=== PATIENT | female | born 1945 | race Caucasian/White ===

== ENCOUNTER → 2017-09-05 09:25 | Outpatient (CLI) | payer MEDICARE, OTHER, SELFPAY ==
[2017-09-05 12:34] LABS: Cholesterol 116 mg/dL (200); High Density Lipoprotein 41 mg/dL; Triglycerides 226 mg/dL; Very Low Density Lipoprotein 45 mg/dL (5-40)
[2017-09-05 12:36] LABS: Hemoglobin A1c 9.8 % (4.2-6.3)
== END ==
PROVIDERS: Family Provider Family Medicine; PCP Family Medicine; Visit Provider Family Medicine
DX: E78.5 Hyperlipidemia, unspecified (principal); E11.9 Type 2 diabetes mellitus without complications
CPT/HCPCS: 36415; 80061; 83036

== ENCOUNTER → 2017-12-03 09:07 | Outpatient (CLI) | payer MEDICARE, OTHER, SELFPAY ==
[2017-12-03 10:45] LABS: Hemoglobin A1c 9.9 % (4.2-6.3)
== END ==
PROVIDERS: Family Provider Family Medicine; PCP Family Medicine; Visit Provider Family Medicine
DX: E11.9 Type 2 diabetes mellitus without complications (principal)
CPT/HCPCS: 36415; 83036

== ENCOUNTER → 2018-03-09 08:37 | Outpatient (CLI) | payer MEDICARE, OTHER, SELFPAY ==
[2018-03-09 11:04] LABS: Cholesterol 132 mg/dL (200); High Density Lipoprotein 49 mg/dL; Triglycerides 180 mg/dL; Very Low Density Lipoprotein 36 mg/dL (5-40)
[2018-03-09 11:09] LABS: Hemoglobin A1c 7.8 % (4.2-6.3)
== END ==
PROVIDERS: Family Provider Family Medicine; PCP Family Medicine; Referring Provider Family Medicine; Visit Provider Family Medicine
DX: E11.9 Type 2 diabetes mellitus without complications (principal); E78.2 Mixed hyperlipidemia
CPT/HCPCS: 36415; 80061; 83036

== ENCOUNTER → 2018-05-04 09:25 | Outpatient (CLI) | payer MEDICARE, OTHER, SELFPAY ==
[2018-05-04 08:33] VITALS: BMI 31.9
[2018-05-04 10:55] LABS: Microalbumin,Random Urine 74.9 mg/L (NO RANGE EST.); Microalbumin:Creatinine Ratio 113.7 mg/g CRE (<30 mg/g CRE)
--- OUTSIDE RECORDS SUMMARY | 2018-08-05 21:46 | XMS RPT_ITS ---
:1945 Author Organization OHIP Care Team Providers Name Role Phone RASHAUN BLAKE Attending Unavailable BROWN, RASHAUN Primary Care Unavailable JENNIFER VALENCIA CNP Attending Unavailable BROWN, RASHAUN Primary Care Unavailable HANY CRAWFORD CNP Attending Unavailable BROWN, RASHAUN Primary Care Unavailable Jennifer Valencia CABLE ARMORER-C Attending Unavailable Brown, Rashaun Referring Unavailable Jennifer Valencia CABLE ARMORER-C Attending Unavailable Jennifer Valencia CABLE ARMORER-C Referring Unavailable Brown, Rashaun Primary Care Unavailable Brown, Rashaun Attending Unavailable Brown, Rashaun Referring Unavailable Brown, Rashaun Primary Care Unavailable Brown, Rashaun Attending Unavailable Brown, Rashaun Referring Unavailable Brown, Rashaun Attending Unavailable Brown, Rashaun Primary Care Unavailable Brown, Rashaun Attending Unavailable Brown, Rashaun Referring Unavailable Jennifer Valencia CABLE ARMORER-C Attending Unavailable Brown, Rashaun Referring Unavailable Jennifer Valencia CABLE ARMORER-C Attending Unavailable Brown, Rashaun Referring Unavailable Brown, Rashaun Primary Care Unavailable Brown, Rashaun Attending Unavailable Brown, Rashaun Referring Unavailable Brown, Rashaun Primary Care Unavailable Brown, Rashaun Attending Unavailable Rashaun Blake Primary Care Unavailable PROBLEMS PROBLEMS DATE TYPE CONDITION / CODE ATTENDING STATUS SOURCE 05/04/2018 Unknown E11.9 - Type 2 Jennifer Valencia Active [facility] diabetes mellitus CABLE ARMORER-C Community without Hospital complications / Repository E11.9(ICD-10) 03/04/2018 Unknown E78.2 - Mixed Rashaun Blake Active [facility] hyperlipidemia / Community E78.2(ICD-10) Hospital Repository 09/09/2017 Unknown E78.5 - Hayden, Rashaun Active [facility] Hyperlipidemia, Community unspecified / Hospital E78.5(ICD-10) Repository 09/09/2017 Unknown I10 - Essential Brown, Rashaun Active [place] (primary) Community hypertension / Hospital I10(ICD-10) Repository PROCEDURES PROCEDURES No Procedure Records FoundRESULTS RESULTS ENDOCRINOLOGY VISIT Observed: 05/04/2018 Status: F Source: [place] REPORT 12:35 PM [facility] REPOSITORY [facility]. [address] [place] [address] OFFICE VISIT Date of Service: 05/04/18 MR#: [id number] Acct: [id number] Name: MARIAELENA BERMAN Rep #: [id number] : 1945 Provider: Jennifer Valencia NP Age/Sex: 73/F [place] [facility] [place]: Signed HPI History of present illness Kyrie Berman is a 73 year old female who presents for follow up of diabetes type 2. Diagnosed in 1987. Currently on januvia, glipizide 2.5mg and metformin. States she was also on invokana but she actually had swelling in her lower extremities while on the medication so it was stopped. 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 RECENT a1C DOWN TO 7.8; THIS IS DOWN FROM 9.9 At time of visit: -Pt denies symptoms of hypertensive emergency (CP,SOB,PAEZ, or blurred vision) and hypotension(dizziness or lightheadedness) -Pt denies symptoms of hypoglycemia ( sweaty, confusion, anxiety, tremor, hunger, palpitations) and hyperglycemia ( polydipsia, polyuria) -Pt denies potential medication adverse effect. Hypoglycemia Aware of hypoglycemia: When awake Able to self treat low BG: Yes Frequent low Bloo sugar: No Has supply of glucagon: no Diet 3 meals Breakfast light Total of 0599-1945 latia diet Exercise Daily walks [place] daily SMBG 1 time daily BG 140 -216 checked in am or after evening meal. Exam Const General: cooperative Nutritional Appearance: overweight Orientation: oriented x3 Resp Effort AND Inspection: normal respiratory effort Auscultation: Bilateral: Clear to Auscultation Cardio Palpation: normal PMI Rate: regular rate Rhythm: regular rhythm Heart Sounds: S1 normal, S2 normal Skin General: no rashes or lesions noted Neuro General: normal sensation to monofilament Extrem General: normal to inspection, no pedal edema Feet: Pulses intact and monofilament test normal. Type: type 2 Glucose control symptoms: Reports high post-meal glucose Weight and fatigue symptoms: Denies snoring Cardiopulmonary symptoms: Reports chest pain at rest; denies dyspnea on exertion, lightheadedness or myalgias GI symptoms: Denies constipation, diarrhea, nausea/dyspepsia or vomiting Skin and extremity symptoms: Denies tingling/numbness/burning Other symptoms: Denies blurry vision or change in vision Pertinent visit history: Denies recent visit to ER, recent hospital admission or recent 911 calls Self monitoring: Yes Glucometer type: one touch ultra one time daily Percentage of fasting blood glucose within goal: 25%-50% of the time Dietary compliance: Diabetes: good Diabetes education in past year: Yes Glucose testing: demonstrates correct use of meter, understands testing schedule Sick day education - understands ketone testing: Yes Physical activity: regular Intake Vital Signs05/04/18 Height 5 ft 1 in 05/04/18 Weight: 169 lb 2 oz 05/04/18 Body Mass Index (BMI) 31.9 05/04/18 Blood Pressure 120/80 05/04/18 Blood Pressure Location Lt popliteal Intake Visit Reasons: 3 M FU Dice Manager Required: No Accompanied by: Self Allergies canagliflozin [From Invokana] Allergy (Severe, Verified 05/04/18 08:29) Itching venom-honey bee Allergy (Unknown, Verified 05/04/18 08:29) Unknown oranade Allergy (Severe, Uncoded 05/04/18 08:29) Other Medications acetaminophen 325 mg capsule 325 mg PO Q6H PRN 09/03/17 [History Confirmed 05/04/18] amitriptyline 25 mg tablet 25 mg PO QHS #90 tab 09/03/17 [Rx Confirmed 05/04/18] ascorbate calcium 500 mg tablet 500 mg PO QDAY 09/03/17 [History Confirmed 05/04/18] ascorbic acid (vitamin C) 500 mg capsule mg PO 09/03/17 [History Confirmed 05/04/18] aspirin 81 mg tablet,delayed release 81 mg PO QDAY 09/03/17 [History Confirmed 05/04/18] esomeprazole magnesium 20 mg capsule,delayed release 20 mg PO QDAY 09/03/17 [History Confirmed 05/04/18] flaxseed oil 1,000 mg capsule 1,000 mg PO QDAY 09/03/17 [History Confirmed 05/04/18] metoprolol succinate ER 50 mg tablet,extended release 24 hr 50 mg PO QDAY #90 tab 09/03/17 [Rx Confirmed 05/04/18] multivitamin tablet 1 tab PO QAM 09/03/17 [History Confirmed 05/04/18] nutra calm PO 09/03/17 [History Confirmed 05/04/18] pravastatin 10 mg tablet 10 mg PO QHS #90 tab 09/03/17 [Rx Confirmed 05/04/18] valsartan 320 mg-hydrochlorothiazide 25 mg tablet 0.5 tab PO QDAY tab 12/03/17 [History Confirmed 05/04/18] losartan 100 mg-hydrochlorothiazide 25 mg tablet 1 tab PO QDAY #90 tab 12/16/17 [Rx Confirmed 05/04/18] metformin ER 500 mg 24 hr tablet,extended release 500 mg PO QPM #60 tab 02/02/18 [Rx Confirmed 05/04/18] metformin ER 1,000 mg tablet,extended release 24hr 1,000 mg PO QDAY #90 tab 03/04/18 [Rx Confirmed 05/04/18] sitagliptin 100 mg tablet 100 mg PO QDAY #90 tab 03/04/18 [Rx Confirmed 05/04/18] blood sugar diagnostic strips See Dose Instructions .ROUTE .MEDSUPPLY #50 ea 05/04/18 [Rx Confirmed 05/04/18] glipizide ER 5 mg tablet, extended release 24 hr 5 mg PO DAILY #30 tab 05/04/18 [Rx Confirmed 05/04/18] Nurse's Note: blood sugars : low : 151 high : 241 [facility] Medical History Mitral valve prolapse (Chronic) Seasonal allergic rhinitis (Chronic) Cataracts, bilateral (Chronic) Chronic back pain (Chronic) GERD (gastroesophageal reflux disease) (Chronic) Hyperlipemia (Chronic) Hypertension (Chronic) Type 2 diabetes mellitus (Chronic) Arthritis (Acute) Bone fracture (Acute) COPD (chronic obstructive pulmonary disease) (Acute) Chronic headaches (Acute) Gout (Acute) Hearing problem (Acute) Heart murmur (Acute) History of hysterectomy (Acute) Recurrent UTI (Acute) Vision problem (Acute) Surgical History History of cholecystectomy (Acute) History of foot surgery (Acute) History of tonsillectomy (Acute) Family History Mother Cancer ovarian Arthritis Diabetes Depression Father Respiratory disease Arthritis Heart disease Grandfather Heart disease Myocardial infarction Brother Parkinsons Sister Diabetes Aunt Thyroid disorder Arthritis Diabetes Social History Smoking Status: Never smoker alcohol intake: never substance use type: does not use what type of physical activity do you participate in: walking frequency: daily ROS Const Constitutional: No anorexia, body ache, chills, fatigue, fever(s), frequent falls, decreased energy, malaise, night sweats, weakness, weight change, sleep problems, abnormal sleep pattern, change in appetite, other, headache(s), snoring or excessive sweating Eyes Eyes: No blurry vision, change in vision, double vision, discharge, dry eyes, bulging eyes, floaters, visual disturbances, eye pain, light sensitivity, spots in vision, tunnel vision or other ENT ENT: Positive for nasal discharge and post nasal drip; no abnormal hearing, ear pain, ear discharge, ear pressure, hearing loss, tinnitus, dizziness/vertigo, balance problems, nosebleed/epistaxis, nasal congestion, nasal obstruction, nose pain, sinus pressure, sinus pain, headache(s), facial pain, dental pain, dry mouth, bad breath, hoarseness, lip swelling, mouth lesions, mouth pain, sore throat, tongue swelling, throat swelling, other, difficulty swallowing or neck pain Resp Respiratory: No cough, change in phlegm color, chest congestion, excessive phlegm production, hemoptysis, pain on inspiration, shortness of breath, pain with cough, snoring, stridor, wheezing or other Cardio Cardiology: Positive for chest pain at rest; no chest pain with exertion, leg pain with exertion, excessive sweating, shortness of breath, dyspnea on exertion, generalized swelling, irregular heart rhythm, lightheadedness, orthopnea, radiating jaw, neck or arm pain, fast heart rate, slow heart rate, palpitations or other Gastro GI: No abdominal pain, belching, bloating, change in bowel habits, change in stool character, coffee ground emesis, constipation, cramping, diarrhea, heartburn, difficulty swallowing, feeling full early, excessive flatus, incontinent of stools, Vomiting blood/hematemesis, blood in stool, loose stools, Black,tarry stools, nausea/dyspepsia, pain with swallowing, vomiting or other Genitourinary-Female: No difficulty urinating, burning urination, painful urination, urinary incontinence, urinary frequency, urinary urgency, urinary hesitancy, urinary retention, blood in urine, Frequent nighttime urination/ nocturia, post void dribbling, suprapubic fullness, side pain, sexual problems, genital lesions, genital itching, hot flashes, abnormal periods, abnormal vaginal bleeding, absent period, painful periods, light periods, heavy periods, difficulty getting , painful intercourse, pelvic pain, vaginal dryness, vaginal odor, Vaginal Itching or other Musc Musculoskeletal: No abnormal walking, joint pain, back pain, deformity, joint swelling, limited range of motion, loss of height, muscle cramps, muscle weakness, decreased muscle mass, body aches, neck pain, numbness, radiating pain into limb, stiffness, tingling or other Skin Skin: No acne, hair loss, change in hair, nail changes, boil, change in skin color, dry skin, redness, excessive hair growth, yellowing of the skin, lesions, itching, rash, skin pain, skin ulcer, sores, skin swelling, wounds or other Breast Breast: No other Neuro Neurology: No frequent falls, weakness, visual disturbances, abnormal hearing, headache(s), abnormal walking, numbness or tingling Psych Psychiatric: No abnormal sleep pattern, No change in appetite Endo Endocrine: No fatigue, other or excessive sweating Aller/Imm Allergy/Immunologic: No lip swelling, tongue swelling, throat swelling, wheezing or itchy eyes Assessment AND Plan Problems 1. Type 2 diabetes mellitus without complication, without long-term current use of insulin E11.9 2. Essential hypertension I10 3. Mixed hyperlipidemia E78.2 Plan Diabetes: Has been monitoring her BG and her diet. Feels she is doing the best she can with her diet. Not as active in the winter as she was in the summer. Feels good. Offers no complaints. Tolerating glipizide, will increase to 5mg daily Labs reviewed with patient. HTN: Controlled. On ARB without side effects Hyperlipidemia: On statin without side effect. Lipids in range. Orders Orders: Medications New: blood sugar diagnostic strips (Pongo ResumeTouch UlAs directed. Check BG one to two times daiE11.9 tra Blue Test Strip) ly 50 ea 11RF Discontinued: Plan Detail Additional Comments 1. Please schedule follow up in 3 months. 2. Lab work one week before appointment. 3. Discussed importance of regular exercise and recommend starting or continuing a regular exercise program for good health. 4. The patient was encouraged to lose weight for good health 5. The importance of monitoring blood sugar regularly was reviewed. 6. The importance of monitoring the HBA1c level regularly was reviewed. 7. The importance of prper foot care and regularly checking feet to prevent sores and loss of limbs was reviewed. 8. The importance of keeping BP at or below 130/80 to prevent stroke, heart attacks, kidney failure, blindness was reviewed. Spent approximately 30 minutes with patient with over 50% of time spent in discussion and counseling regarding medication adjustment, symptoms and treatment of hypoglycemia, diet adherence, and checking BG before driving. Coding Level of Care Code Off vis,est,level 4 Diagnoses Type 2 diabetes mellitus without complication, without long- term current use of insulin E11.9 Diabetes mellitus complication status: without complication Diabetes mellitus computer terminal operator insulin use: without computer terminal operator use Essential hypertension I10 Hypertension type: essential hypertension Mixed hyperlipidemia E78.2 Hyperlipidemia type: mixed hyperlipidemia 05/04/18 1235 <Electronically signed by Jennifer JOAQUIN> Date Jennifer JOAQUIN Cosigner Signature: Date (if applicable) CC: MICROALB:CREAT Collected: 05/04/2018 Status: F Source: [facility] RATIO,RANDOM UR 9:36 AM [facility] REPOSITORY TYPE CODE TESTS RESULT OUT OF RANGE REFERENCE UNITS LAB L501.1200 NO RANGE EST. mg/dL Normal UR CREAT 65.90 LAB L502.0500 NO RANGE EST. mg/L Normal 74.9 MICROALBUMIN ,UR LAB L502.0600 <30 mg/g CRE mg/g CRE High 113.7 MALB:CREAT Performed By: #### L502.0250 #### [facility] [address] [facility] [facility] [id number] LIPID PROFILE Collected: 03/09/2018 Status: F Source: [facility] 8:42 AM [facility] REPOSITORY TYPE CODE TESTS RESULT OUT OF RANGE REFERENCE UNITS LAB L501.4900 200 mg/dL Normal CHOL 132 Result Comment: <200 mg/dL Desirable 200-240 mg/dL Borderline >240 mg/dL High Risk LAB L501.5000 mg/dL Normal TRIG 180 Result Comment: The drugs N-Acetylcysteine and Metamizole may falsely depress this assay. Serum Triglycerides Reference Interval Normal <150 mg/dL Borderline high 150 - 199 mg/dL High 200 - 499 mg/dL Very High > or = 500 mg/dL LAB L501.6400 mg/dL Normal HDL 49 Result Comment: The drugs N-Acetylcysteine and Metamizole may falsely depress this assay. Reference Range HDL <40 mg/dL Low HDL Cholesterol HDL >or= 60 mg/dL High HDL Cholesterol LAB L501.6500 0-130 mg/dL Normal LDL 47 LAB L501.6600 5-40 mg/dL Normal VLDL 36 Performed By: #### L500.4100, L501.9985 #### [facility] [address] [facility]. [facility] [id number] HEMOGLOBIN A1C Collected: 03/09/2018 Status: F Source: [place] 8:42 AM [facility] REPOSITORY TYPE CODE TESTS RESULT OUT OF RANGE REFERENCE UNITS LAB L501.9985 4.2-6.3 % High HGB A1C 7.8 Performed By: #### L500.4100, L501.9985 #### [facility] [address] [place], [address] INTERNAL MEDICINE Observed: 03/04/2018 Status: F Source: [place] OFFICE VISIT 8:59 AM [facility] REPOSITORY [facility] [address] [place] [address] [place] [address] OFFICE VISIT Date of Service: 03/04/18 MR#: [id number] Acct: [id number] Name: MARIAELENA BERMAN Rep #: [id number] : 1945 Provider: Rashaun Blake DO Age/Sex: 72/F Location: [facility] Status: Signed Intake Vital Signs03/04/18 Height 5 ft 1 in Intake Visit Reasons: 3 MO FU Chief Complaint: follow-up diabetic Is patient in pain?: No Allergies canagliflozin [From Invokana] Allergy (Severe, Verified 02/02/18 12:57) Itching venom-honey bee Allergy (Unknown, Verified 02/02/18 12:57) Unknown oranade Allergy (Severe, Uncoded 02/02/18 12:57) Other Medications acetaminophen 325 mg capsule 325 mg PO Q6H PRN 09/03/17 [History Confirmed 02/02/18] amitriptyline 25 mg tablet 25 mg PO QHS #90 tab 09/03/17 [Rx Confirmed 02/02/18] ascorbate calcium 500 mg tablet 500 mg PO QDAY 09/03/17 [History Confirmed 02/02/18] ascorbic acid (vitamin C) 500 mg capsule mg PO 09/03/17 [History Confirmed 02/02/18] aspirin 81 mg tablet,delayed release 81 mg PO QDAY 09/03/17 [History Confirmed 02/02/18] esomeprazole magnesium 20 mg capsule,delayed release 20 mg PO QDAY 09/03/17 [History Confirmed 02/02/18] flaxseed oil 1,000 mg capsule 1,000 mg PO QDAY 09/03/17 [History Confirmed 02/02/18] metoprolol succinate ER 50 mg tablet,extended release 24 hr 50 mg PO QDAY #90 tab 09/03/17 [Rx Confirmed 02/02/18] multivitamin tablet 1 tab PO QAM 09/03/17 [History Confirmed 02/02/18] nutra calm PO 09/03/17 [History Confirmed 02/02/18] pravastatin 10 mg tablet 10 mg PO QHS #90 tab 09/03/17 [Rx Confirmed 02/02/18] valsartan 320 mg-hydrochlorothiazide 25 mg tablet 0.5 tab PO QDAY tab 12/03/17 [History Confirmed 02/02/18] losartan 100 mg-hydrochlorothiazide 25 mg tablet 1 tab PO QDAY #90 tab 12/16/17 [Rx Confirmed 02/02/18] metformin ER 500 mg 24 hr tablet,extended release 500 mg PO QPM #60 tab 02/02/18 [Rx Confirmed 02/02/18] glipizide ER 2.5 mg tablet, extended release 24 hr 2.5 mg PO DAILY #90 tab 03/04/18 [Rx Confirmed 03/04/18] metformin ER 1,000 mg tablet,extended release 24hr 1,000 mg PO QDAY #90 tab 03/04/18 [Rx Confirmed 03/04/18] sitagliptin 100 mg tablet 100 mg PO QDAY #90 tab 03/04/18 [Rx Confirmed 03/04/18] Post menopausal: Yes [facility] Medical History Mitral valve prolapse (Chronic) Seasonal allergic rhinitis (Chronic) Cataracts, bilateral (Chronic) Chronic back pain (Chronic) GERD (gastroesophageal reflux disease) (Chronic) Hyperlipemia (Chronic) Hypertension (Chronic) Type 2 diabetes mellitus (Chronic) Arthritis (Acute) Bone fracture (Acute) COPD (chronic obstructive pulmonary disease) (Acute) Chronic headaches (Acute) Gout (Acute) Hearing problem (Acute) Heart murmur (Acute) History of hysterectomy (Acute) Recurrent UTI (Acute) Vision problem (Acute) Surgical History History of cholecystectomy (Acute) History of foot surgery (Acute) History of tonsillectomy (Acute) Family History Mother Cancer ovarian Arthritis Diabetes Depression Father Respiratory disease Arthritis Heart disease Grandfather Heart disease Myocardial infarction Brother Parkinsons Sister Diabetes Aunt Thyroid disorder Arthritis Diabetes Social History Smoking Status: Never smoker alcohol intake: never substance use type: does not use what type of physical activity do you participate in: walking frequency: daily HPI HPI Chief Complaint: follow-up diabetic Details: MARIAELENA BERMAN, is a 72 F who presents to the office today for a follow-up on her diabetes. She is seen B[facility] timi for an endocrinology consult and she increase the metformin by adding 500 mg in the morning. Mariaelena has noticed very little difference in her blood sugars since that time she is also had difficulties getting her Januvia from the [facility] as of [place] do not go through. In terms of symptoms she remains symptom-free. ROS Const Constitutional: No weight change, body ache, chills, fatigue, sleep problems, fever(s), change in appetite, snoring, weakness, frequent falls, headache(s) or excessive sweating Eyes Eyes: No change in vision, eye pain, light sensitivity or blurry vision ENT ENT: No headache(s), abnormal hearing, ear pain, tinnitus, nasal congestion, sore throat or neck pain Resp Respiratory: No snoring, cough, shortness of breath or wheezing Cardio Cardiology: No excessive sweating, chest pain at rest, chest pain with exertion, shortness of breath, dyspnea on exertion, palpitations, orthopnea or lightheadedness Gastro GI: No abdominal pain, change in bowel habits, constipation, diarrhea, vomiting, nausea/dyspepsia or cramping Genitourinary-Female: No burning urination, painful urination, urinary incontinence, urinary frequency, abnormal vaginal bleeding, pelvic pain or other Musc Musculoskeletal: No neck pain, abnormal walking, joint pain, back pain, limited range of motion, numbness, tingling or muscle weakness Skin Skin: No redness, dry skin, itching, lesions, wounds or rash Neuro Neurology: No weakness, frequent falls, headache(s), abnormal hearing, abnormal walking, numbness, tingling, abnormal speech, dizziness or memory loss Psych Psychiatric: No change in appetite, No memory loss, No anxiety, No depression, No Thoughts of harming yourself/Others Endo Endocrine: No fatigue, excessive sweating, cold intolerance, increased thirst/drinking, heat intolerance, flushing or increased hunger Aller/Imm Allergy/Immunologic: No wheezing, itchy eyes, hives or seasonal allergy symptoms Kvng/Lymp Hematologic/Lymphatic: No easy bleeding, easy bruising or enlarged lymph nodes Exam Const General: healthy appearing Nutritional Appearance: overweight Orientation: oriented x3 Eyes General: appearance normal, both eyes and all related structures (she has yearly eye exams) Neck Neck mass: No Thyroid: thyroid normal Resp Effort AND Inspection: normal respiratory effort Auscultation: Bilateral: Clear to Auscultation Cardio Rate: regular rate Rhythm: regular rhythm Musc Musculoskeletal: No muscle weakness Skin General: no rashes or lesions noted Neuro General: oriented x3, normal sensation to monofilament Assessment AND Plan Problems 1. Type 2 diabetes mellitus without complication, without long-term current use of insulin E11.9 Dx : 1987 Last exacerbation : DKA : never Hypoglycemic episode : never ER visit : never 2. Essential hypertension I10 3. Mixed hyperlipidemia E78.2 Plan This patient was seen for recheck on her diabetes. She is also been seen by endocrinology who increased her metformin she notices no difference in her blood sugars and working over the site administrator note the next step was to add a sulfonylurea which I did. She has had blood work done but is done with an outside hospital so we will have to locate that blood work and then decide what appropriate blood work if any needs to be done at this time. Physical examination was unchanged. Orders Orders: Medications New: Refilled: Plan Detail Follow Up 6 Months Coding Level of Care Code Off vis,est,level 3 Diagnoses Type 2 diabetes mellitus without complication, without long- term current use of insulin E11.9 Diabetes mellitus complication status: without complication Diabetes mellitus computer terminal operator insulin use: without computer terminal operator use Essential hypertension I10 Hypertension type: essential hypertension Mixed hyperlipidemia E78.2 Hyperlipidemia type: mixed hyperlipidemia 03/04/18 0859 <Electronically signed by Rashaun Blake DO> Date Rashaun Blake DO Cosigner Signature: Date (if applicable) CC: CMP Collected: 02/09/2018 Status: F Source: [employer] 8:40 AM [facility] REPOSITORY TYPE CODE TESTS RESULT OUT OF REFERENCE UNITS RANGE LAB GLU(LOINC) 83-110 mg/dL Glucose High Level 170 LAB NA(LOINC) 136-145 mmol/L Low Sodium Level 135 LAB K(LOINC) 3.5-5.1 mmol/L Potassium Level 4.9 LAB CL(LOINC) 98-107 mmol/L Low Chloride 97 LAB CO2(LOINC) 23-31 mmol/L CO2 28 LAB EBAL(LOINC mEq/L ) Electrolyte Balance 10.0 LAB BUN(LOINC) 7-18 mg/dL BUN 18 LAB CRE(LOINC) 0.55-1.02 mg/dL Creatinine Lvl (s) 0.79 LAB BC(LOINC) 7-27 ratio BUN/Creatinine 23 Ratio LAB CA(LOINC) 8.4-10.2 mg/dL Calcium Lvl 9.8 LAB PROT(LOINC 6.4-8.2 G/dL ) Total Protein 7.5 LAB ALB(LOINC) 3.4-4.8 G/dL Albumin Level 3.6 LAB GLB(LOINC) G/dL Globulin 3.9 LAB AG(LOINC) 1.1-2.5 ratio Low A/G Ratio 0.9 LAB BILT(LOINC 0.2-1.0 mg/dL ) Bili Total 0.7 LAB AP(LOINC) 40-135 U/L Alk Phos 61 LAB AST(LOINC) 10-40 U/L AST/SGOT High 57 LAB ALT(LOINC) 10-35 U/L ALT/SGPT High 54 Performed By: #### CMP, GFR #### [place] [address] .GFR Collected: 02/09/2018 Status: F Source: [facility] 8:40 AM [facility] REPOSITORY TYPE CODE TESTS RESULT OUT OF REFERENCE UNITS RANGE LAB GFRAA(LOINC ml/min/1.73 ) sqm GFR 87 [place] Result Comment: GFR Population mean for , Non- Americans Ages 20-29 = 116 mL/min/1.73 sq.m. Ages 30-39 = 107 mL/min/1.73 sq.m. Ages 40-49 = 99 mL/min/1.73 sq.m. Ages 50-59 = 93 mL/min/1.73 sq.m. Ages 60-69 = 85 mL/min/1.73 sq.m. Ages 70+ = 75 mL/min/1.73 sq.m. Chronic Kidney Disease: Less than 60 mL/min/1.73 square meters End Stage Renal Disease: Less than 15 mL/min/1.73 square meters LAB GFRNO(LOINC) ml/min/1.73sqm GFR Non- 72 Result Comment: GFR Population mean for , Non- Americans Ages 20-29 = 116 mL/min/1.73 sq.m. Ages 30-39 = 107 mL/min/1.73 sq.m. Ages 40-49 = 99 mL/min/1.73 sq.m. Ages 50-59 = 93 mL/min/1.73 sq.m. Ages 60-69 = 85 mL/min/1.73 sq.m. Ages 70+ = 75 mL/min/1.73 sq.m. Chronic Kidney Disease: Less than 60 mL/min/1.73 square meters End Stage Renal Disease: Less than 15 mL/min/1.73 square meters Performed By: #### CMP, GFR #### [place] [address] ENDOCRINOLOGY VISIT Observed: 02/02/2018 Status: F Source: [place] REPORT 6:50 PM [facility] REPOSITORY [facility] [address] [place] [address] [address] [place] [address] OFFICE VISIT Date of Service: 02/02/18 MR#: [id number] Acct: [id number] Name: MARIAELENA BERMAN Rep #: [id number] : 1945 Provider: Jennifer Valencia NP Age/Sex: 72/F [place] [facility] [place]: Signed HPI History of present illness HPI History of present illness Kyrie Berman is a 72 year old female who presents for follow up of diabetes type 2. Diagnosed in 1987. Currently on januvia and metformin. States she was also on invokana but she actually had swelling in her lower extremities while on the medication so it was stopped. 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 Now she finds BG are not controlled and her recent A1c was up to 9.9 At time of visit: -Pt denies symptoms of hypertensive emergency (CP,SOB,PAEZ, or blurred vision) and hypotension(dizziness or lightheadedness) -Pt denies symptoms of hypoglycemia ( sweaty, confusion, anxiety, tremor, hunger, palpitations) and hyperglycemia ( polydipsia, polyuria) -Pt denies potential medication adverse effect. Hypoglycemia Aware of hypoglycemia: When awake Able to self treat low BG: Yes Frequent low Bloo sugar: No Has supply of glucagon: no Diet 3 meals Breakfast light Total of 1200 latia diet Exercise Daily walks Gardens daily SMBG 1 time daily BG 165-216 checked in am or after evening meal. Exam Const General: cooperative Nutritional Appearance: overweight Orientation: oriented x3 Resp Effort AND Inspection: normal respiratory effort Auscultation: Bilateral: Clear to Auscultation Cardio Palpation: normal PMI Rate: regular rate Rhythm: regular rhythm Heart Sounds: S1 normal, S2 normal Skin General: no rashes or lesions noted Neuro General: normal sensation to monofilament Extrem General: normal to inspection, no pedal edema Type: type 2 Weight and fatigue symptoms: Denies snoring Cardiopulmonary symptoms: Denies chest pain at rest, dyspnea on exertion, lightheadedness or myalgias GI symptoms: Denies constipation, diarrhea, nausea/dyspepsia or vomiting Skin and extremity symptoms: Denies tingling/numbness/burning Other symptoms: Denies blurry vision or change in vision Pertinent visit history: Denies recent visit to ER or recent DKA Self monitoring: Yes Dietary compliance: Diabetes: good Diabetes education in past year: Yes Glucose testing: demonstrates correct use of meter, understands testing schedule Sick day education - understands ketone testing: Yes Physical activity: regular Intake Vital Signs02/02/18 Height 5 ft 1 in 02/02/18 Weight: 167 lb 6 oz 02/02/18 Body Mass Index (BMI) 31.6 02/02/18 Blood Pressure 143/71 02/02/18 Blood Pressure Location Lt popliteal Intake Visit Reasons: Diabetes follow-up Dice Manager Required: No Accompanied by: Self Is patient in pain?: No Allergies canagliflozin [From Invokana] Allergy (Severe, Verified 02/02/18 12:57) Itching venom-honey bee Allergy (Unknown, Verified 02/02/18 12:57) Unknown oranade Allergy (Severe, Uncoded 02/02/18 12:57) Other Medications acetaminophen 325 mg capsule 325 mg PO Q6H PRN 09/03/17 [History Confirmed 02/02/18] amitriptyline 25 mg tablet 25 mg PO QHS #90 tab 09/03/17 [Rx Confirmed 02/02/18] ascorbate calcium 500 mg tablet 500 mg PO QDAY 09/03/17 [History Confirmed 02/02/18] ascorbic acid (vitamin C) 500 mg capsule mg PO 09/03/17 [History Confirmed 02/02/18] aspirin 81 mg tablet,delayed release 81 mg PO QDAY 09/03/17 [History Confirmed 02/02/18] esomeprazole magnesium 20 mg capsule,delayed release 20 mg PO QDAY 09/03/17 [History Confirmed 02/02/18] flaxseed oil 1,000 mg capsule 1,000 mg PO QDAY 09/03/17 [History Confirmed 02/02/18] metoprolol succinate ER 50 mg tablet,extended release 24 hr 50 mg PO QDAY #90 tab 09/03/17 [Rx Confirmed 02/02/18] multivitamin tablet 1 tab PO QAM 09/03/17 [History Confirmed 02/02/18] nutra calm PO 09/03/17 [History Confirmed 02/02/18] pravastatin 10 mg tablet 10 mg PO QHS #90 tab 09/03/17 [Rx Confirmed 02/02/18] valsartan 320 mg-hydrochlorothiazide 25 mg tablet 0.5 tab PO QDAY tab 12/03/17 [History Confirmed 02/02/18] losartan 100 mg-hydrochlorothiazide 25 mg tablet 1 tab PO QDAY #90 tab 12/16/17 [Rx Confirmed 02/02/18] metformin ER 1,000 mg tablet,extended release 24hr 1,000 mg PO QDAY #30 tab 01/13/18 [Rx Confirmed 02/02/18] sitagliptin 100 mg tablet 100 mg PO QDAY #30 tab 01/13/18 [Rx Confirmed 02/02/18] metformin ER 500 mg 24 hr tablet,extended release 500 mg PO QPM #60 tab 02/02/18 [Rx Confirmed 02/02/18] Is last menstrual period known: No Post menopausal: Yes Patient : No Nurse's Note: blood sugars : low : 127 high : 277 PFSH Medical History Mitral valve prolapse (Chronic) Seasonal allergic rhinitis (Chronic) Cataracts, bilateral (Chronic) Chronic back pain (Chronic) GERD (gastroesophageal reflux disease) (Chronic) Hyperlipemia (Chronic) Hypertension (Chronic) Type 2 diabetes mellitus (Chronic) Arthritis (Acute) Bone fracture (Acute) COPD (chronic obstructive pulmonary disease) (Acute) Chronic headaches (Acute) Gout (Acute) Hearing problem (Acute) Heart murmur (Acute) Recurrent UTI (Acute) Vision problem (Acute) Surgical History History of cholecystectomy (Acute) History of foot surgery (Acute) History of hysterectomy (Acute) History of tonsillectomy (Acute) Family History Mother Cancer ovarian Arthritis Diabetes Depression Father Respiratory disease Arthritis Heart disease Grandfather Heart disease Myocardial infarction Brother Parkinsons Sister Diabetes Aunt Thyroid disorder Arthritis Diabetes Social History Smoking Status: Never smoker alcohol intake: never substance use type: does not use what type of physical activity do you participate in: walking frequency: daily ROS Const Constitutional: No anorexia, body ache, chills, fatigue, fever(s), frequent falls, decreased energy, malaise, night sweats, weakness, weight change, sleep problems, abnormal sleep pattern, change in appetite, other, headache(s), snoring or excessive sweating Eyes Eyes: No blurry vision, change in vision, double vision, discharge, dry eyes, bulging eyes, floaters, visual disturbances, eye pain, light sensitivity, spots in vision, tunnel vision or other ENT ENT: No abnormal hearing, ear pain, ear discharge, ear pressure, hearing loss, tinnitus, dizziness/vertigo, balance problems, nosebleed/epistaxis, nasal congestion, nasal obstruction, nose pain, sinus pressure, sinus pain, nasal discharge, post nasal drip, headache(s), facial pain, dental pain, dry mouth, bad breath, hoarseness, lip swelling, mouth lesions, mouth pain, sore throat, tongue swelling, throat swelling, other, difficulty swallowing or neck pain Resp Respiratory: Positive for cough; no change in phlegm color, chest congestion, excessive phlegm production, hemoptysis, pain on inspiration, shortness of breath, pain with cough, snoring, stridor, wheezing or other Cardio Cardiology: No chest pain at rest, chest pain with exertion, leg pain with exertion, excessive sweating, shortness of breath, dyspnea on exertion, generalized swelling, irregular heart rhythm, lightheadedness, orthopnea, radiating jaw, neck or arm pain, fast heart rate, slow heart rate, palpitations or other Gastro GI: No abdominal pain, belching, bloating, change in bowel habits, change in stool character, coffee ground emesis, constipation, cramping, diarrhea, heartburn, difficulty swallowing, feeling full early, excessive flatus, incontinent of stools, Vomiting blood/hematemesis, blood in stool, loose stools, Black,tarry stools, nausea/dyspepsia, pain with swallowing, vomiting or other Genitourinary-Female: No difficulty urinating, burning urination, painful urination, urinary incontinence, urinary frequency, urinary urgency, urinary hesitancy, urinary retention, blood in urine, Frequent nighttime urination/ nocturia, post void dribbling, suprapubic fullness, side pain, sexual problems, genital lesions, genital itching, hot flashes, abnormal periods, abnormal vaginal bleeding, absent period, painful periods, light periods, heavy periods, difficulty getting , painful intercourse, pelvic pain, vaginal dryness, vaginal odor, Vaginal Itching or other Musc Musculoskeletal: No abnormal walking, joint pain, back pain, deformity, joint swelling, limited range of motion, loss of height, muscle cramps, muscle weakness, decreased muscle mass, body aches, neck pain, numbness, radiating pain into limb, stiffness, tingling or other Skin Skin: No acne, hair loss, change in hair, nail changes, boil, change in skin color, dry skin, redness, excessive hair growth, yellowing of the skin, lesions, itching, rash, skin pain, skin ulcer, sores, skin swelling, wounds or other Breast Breast: No other Neuro Neurology: No frequent falls, weakness, visual disturbances, abnormal hearing, headache(s), abnormal walking, numbness or tingling Psych Psychiatric: No abnormal sleep pattern, No change in appetite Endo Endocrine: No fatigue, other or excessive sweating Aller/Imm Allergy/Immunologic: No lip swelling, tongue swelling, throat swelling, wheezing or itchy eyes Assessment AND Plan 1. Type 2 diabetes mellitus without complication, without long-term current use of insulin E11.9 Plan Has continued to monitor BG, calories and has worked on carb counting. Feels she does better with her calories counting. Did check Bg in pairs which notes highest BG post meal after breakfast. BG before breakfast 160-180 PP BG 180-270 Remainder of day BG slightly lower each meal. At this time will add 500mg of metformin to breakfast. If no results noted over short period of time will consider use of sulfonyurea. Pt continues to remain active in her garden and takes walk each afternoon. On ARB, On statin Labs ordered. Orders Orders: Medications New: Plan Detail Additional Comments 1. Please schedule follow up in 3 months. 2. Lab work one week before appointment. 3. Discussed importance of regular exercise and recommend starting or continuing a regular exercise program for good health. 4. The patient was encouraged to lose weight for good health 5. The importance of monitoring blood sugar regularly was reviewed. 6. The importance of monitoring the HBA1c level regularly was reviewed. 7. The importance of prper foot care and regularly checking feet to prevent sores and loss of limbs was reviewed. 8. The importance of keeping BP at or below 130/80 to prevent stroke, heart attacks, kidney failure, blindness was reviewed. Spent approximately 30 minutes with patient with over 50% of time spent in discussion and counseling regarding medication adjustment, symptoms and treatment of hypoglycemia, diet adherence, and checking BG before driving. 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 [place] [address] OFFICE VISIT Date of Service: 01/05/18 MR#: [id number] Acct: [id number] Name: MARIAELENA BERMAN Rep #: [id number] : 1945 Provider: Jennifer Valencia NP Age/Sex: 72/F Location: [facility] Status: Signed HPI History of present illness Kyrie Berman is a 72 year old female who presents for consult of diabetes type 2. Diagnosed in 1987. Currently on januvia and metformin. States she was also on invokana but she actually had swelling in her lower extremities while on the medication so it was stopped. 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 Now she finds BG are not controlled and her recent A1c was up to 9.9 At time of visit: -Pt denies symptoms of hypertensive emergency (CP,SOB,PAEZ, or blurred vision) and hypotension(dizziness or lightheadedness) -Pt denies symptoms of hypoglycemia ( sweaty, confusion, anxiety, tremor, hunger, palpitations) and hyperglycemia ( polydipsia, polyuria) -Pt denies potential medication adverse effect. Hypoglycemia Aware of hypoglycemia: When awake Able to self treat low BG: Yes Frequent low Bloo sugar: No Has supply of glucagon: no Diet 3 meals Breakfast light Total of 1200 [place]ia diet Exercise Daily walks [place] daily SMBG 1 time daily BG 165-216 checked in am or after evening meal. Exam Const General: cooperative Nutritional Appearance: overweight Orientation: oriented x3 Resp Effort AND Inspection: normal respiratory effort Auscultation: Bilateral: Clear to Auscultation Cardio Palpation: normal PMI Rate: regular rate Rhythm: regular rhythm Heart Sounds: S1 normal, S2 normal Skin General: no rashes or lesions noted Neuro General: normal sensation to monofilament Extrem General: normal to inspection, no pedal edema Type: type 2 Glucose control symptoms: Reports high fasting glucose Weight and fatigue symptoms: Reports weight loss; denies snoring Cardiopulmonary symptoms: Denies chest pain at rest, dyspnea on exertion, lightheadedness or myalgias GI symptoms: Denies constipation, diarrhea, nausea/dyspepsia or vomiting Other symptoms: Denies blurry vision or change in vision Pertinent visit history: Denies recent visit to ER or recent DKA Self monitoring: Yes Percentage of fasting blood glucose within goal: <25% of the time Diabetes education in past year: Yes Glucose testing: demonstrates correct use of meter, understands testing schedule Sick day education - understands ketone testing: Yes Physical activity: regular Intake Vital Signs01/05/18 Height 5 ft 1 in 01/05/18 Weight: 169 lb 01/05/18 Body Mass Index (BMI) 31.9 01/05/18 Blood Pressure 124/74 01/05/18 Blood Pressure Location Lt popliteal 01/05/18 Blood Pressure Position Sitting Intake Visit Reasons: Diabetes Mellitus Type 2 Dice Manager Required: No Accompanied by: Self Is patient in pain?: No Allergies canagliflozin [From Invokana] Allergy (Severe, Verified 12/03/17 08:30) Itching venom-honey bee Allergy (Unknown, Verified 01/05/18 08:23) Unknown oranade Allergy (Severe, Uncoded 12/03/17 08:30) Other Medications acetaminophen 325 mg capsule 325 mg PO Q6H PRN 09/03/17 [History Confirmed 01/05/18] amitriptyline 25 mg tablet 25 mg PO QHS #90 tab 09/03/17 [Rx Confirmed 01/05/18] ascorbate calcium 500 mg tablet 500 mg PO QDAY 09/03/17 [History Confirmed 01/05/18] ascorbic acid (vitamin C) 500 mg capsule mg PO 09/03/17 [History Confirmed 01/05/18] aspirin 81 mg tablet,delayed release 81 mg PO QDAY 09/03/17 [History Confirmed 01/05/18] esomeprazole magnesium 20 mg capsule,delayed release 20 mg PO QDAY 09/03/17 [History Confirmed 01/05/18] flaxseed oil 1,000 mg capsule 1,000 mg PO QDAY 09/03/17 [History Confirmed 01/05/18] metformin ER 1,000 mg tablet,extended release 24hr 1,000 mg PO QDAY #90 tab 09/03/17 [Rx Confirmed 01/05/18] metoprolol succinate ER 50 mg tablet,extended release 24 hr 50 mg PO QDAY #90 tab 09/03/17 [Rx Confirmed 01/05/18] multivitamin tablet 1 tab PO QAM 09/03/17 [History Confirmed 01/05/18] nutra calm PO 09/03/17 [History Confirmed 01/05/18] pravastatin 10 mg tablet 10 mg PO QHS #90 tab 09/03/17 [Rx Confirmed 01/05/18] sitagliptin 100 mg tablet 100 mg PO QDAY #90 tab 09/03/17 [Rx Confirmed 01/05/18] valsartan 320 mg-hydrochlorothiazide 25 mg tablet 0.5 tab PO QDAY tab 12/03/17 [History Confirmed 01/05/18] losartan 100 mg-hydrochlorothiazide 25 mg tablet 1 tab PO QDAY #90 tab 12/16/17 [Rx Confirmed 01/05/18] Is last menstrual period known: No Post menopausal: Yes Patient : No Nurse's Note: blood sugars : low : 165 high : 216 PFSH Medical History Mitral valve prolapse (Chronic) Seasonal allergic rhinitis (Chronic) Cataracts, bilateral (Chronic) Chronic back pain (Chronic) GERD (gastroesophageal reflux disease) (Chronic) Hyperlipemia (Chronic) Hypertension (Chronic) Type 2 diabetes mellitus (Chronic) Arthritis (Acute) Bone fracture (Acute) COPD (chronic obstructive pulmonary disease) (Acute) Chronic headaches (Acute) Gout (Acute) Hearing problem (Acute) Heart murmur (Acute) Recurrent UTI (Acute) Vision problem (Acute) Surgical History History of cholecystectomy (Acute) History of foot surgery (Acute) History of hysterectomy (Acute) History of tonsillectomy (Acute) Family History Mother Cancer ovarian Arthritis Diabetes Depression Father Respiratory disease Arthritis Heart disease Grandfather Heart disease Myocardial infarction Brother Parkinsons Sister Diabetes Aunt Thyroid disorder Arthritis Diabetes Social History Smoking Status: Never smoker alcohol intake: never substance use type: does not use what type of physical activity do you participate in: walking frequency: daily ROS Const Constitutional: No anorexia, body ache, chills, fatigue, fever(s), frequent falls, decreased energy, malaise, night sweats, weakness, weight change, sleep problems, abnormal sleep pattern, change in appetite, other, headache(s), snoring or excessive sweating Eyes Eyes: Positive for other (eye exam 07/06); no blurry vision, change in vision, double vision, discharge, dry eyes, bulging eyes, floaters, visual disturbances, eye pain, light sensitivity, spots in vision or tunnel vision ENT ENT: No abnormal hearing, ear pain, ear discharge, ear pressure, hearing loss, tinnitus, dizziness/vertigo, balance problems, nosebleed/epistaxis, nasal congestion, nasal obstruction, nose pain, sinus pressure, sinus pain, nasal discharge, post nasal drip, headache(s), facial pain, dental pain, dry mouth, bad breath, hoarseness, lip swelling, mouth lesions, mouth pain, sore throat, tongue swelling, throat swelling, other, difficulty swallowing or neck pain Resp Respiratory: No cough, change in phlegm color, chest congestion, excessive phlegm production, hemoptysis, pain on inspiration, shortness of breath, pain with cough, snoring, stridor, wheezing or other Cardio Cardiology: No chest pain at rest, chest pain with exertion, leg pain with exertion, excessive sweating, shortness of breath, dyspnea on exertion, generalized swelling, irregular heart rhythm, lightheadedness, orthopnea, radiating jaw, neck or arm pain, fast heart rate, slow heart rate, palpitations or other Gastro GI: Positive for abdominal pain; no belching, bloating, change in bowel habits, change in stool character, coffee ground emesis, constipation, cramping, diarrhea, heartburn, difficulty swallowing, feeling full early, excessive flatus, incontinent of stools, Vomiting blood/hematemesis, blood in stool, loose stools, Black,tarry stools, nausea/dyspepsia, pain with swallowing, vomiting or other Genitourinary-Female: No difficulty urinating, burning urination, painful urination, urinary incontinence, urinary frequency, urinary urgency, urinary hesitancy, urinary retention, blood in urine, Frequent nighttime urination/ nocturia, post void dribbling, suprapubic fullness, side pain, sexual problems, genital lesions, genital itching, hot flashes, abnormal periods, abnormal vaginal bleeding, absent period, painful periods, light periods, heavy periods, difficulty getting , painful intercourse, pelvic pain, vaginal dryness, vaginal odor, Vaginal Itching or other Musc Musculoskeletal: No abnormal walking, joint pain, back pain, deformity, joint swelling, limited range of motion, loss of height, muscle cramps, muscle weakness, decreased muscle mass, body aches, neck pain, numbness, radiating pain into limb, stiffness, tingling or other Skin Skin: Positive for hair loss and change in hair; no acne, nail changes, boil, change in skin color, dry skin, redness, excessive hair growth, yellowing of the skin, lesions, itching, rash, skin pain, skin ulcer, sores, skin swelling, wounds or other Breast Breast: No other Neuro Neurology: No frequent falls, weakness, abnormal hearing, headache(s), abnormal walking, numbness, tingling or visual disturbances Psych Psychiatric: No abnormal sleep pattern, No change in appetite Endo Endocrine: No fatigue, other or excessive sweating Aller/Imm Allergy/Immunologic: No lip swelling, tongue swelling, throat swelling, wheezing or itchy eyes Assessment AND Plan Problems 1. Mixed hyperlipidemia E78.2 2. Essential hypertension I10 3. Type 2 diabetes mellitus without complication, without long-term current use of insulin E11.9 Plan HTN: Controlled. On ARB. No side effects Hyperlipidemia On statin Lipids well controlled Diabetes: After snf patient has remaained active but she is not as active as during her work days. I have ask patient to check BG in pairs, before meals and 2 hours post meal as well as carb count her meals. She will log this information to allow for determination of best course of action. RTC 3 weeks. Plan Detail Additional Comments 1. Please schedule follow up in 3 weeks 2. Lab worknot needed. 3. Discussed importance of regular exercise and recommend starting or continuing a regular exercise program for good health. 4. The patient was encouraged to lose weight for good health 5. The importance of monitoring blood sugar regularly was reviewed. 6. The importance of monitoring the HBA1c level regularly was reviewed. 7. The importance of prper foot care and regularly checking feet to prevent sores and loss of limbs was reviewed. 8. The importance of keeping BP at or below 130/80 to prevent stroke, heart attacks, kidney failure, blindness was reviewed. Spent approximately 60minutes with patient with over 50% of time spent in discussion and counseling regarding medication adjustment, symptoms and treatment of hypoglycemia, diet adherence, and checking BG before driving. Coding Level of Care Code Off vis,new,level 4 Diagnoses Mixed hyperlipidemia E78.2 Hyperlipidemia type: mixed hyperlipidemia Essential hypertension I10 Hypertension type: essential hypertension Type 2 diabetes mellitus without complication, without long- term current use of insulin E11.9 Diabetes mellitus complication status: without complication Diabetes mellitus care home insulin use: without computer terminal operator use Depression Screen PHQ-2/9 PHQ-2 Over the last 2 weeks, how often have you been bothered by any of the following problems? 1. Little interest or pleasure in doing things: not at all 2. Feeling down, depressed, or hopeless: not at all Total score: 0 If score is 2 or greater, continue Source: Developed by Drs. Nilo Sunshine, Porsha Mahmood, Mauricio Guerrero and colleagues, with an educational rhianna from [employer]. Scoring: Total Score Depression Severity Action 1-4 Minimal depression No action needed 5-9 Mild depression Repeat PHQ-9 at follow up 10-14 Moderate depression Make tx plan,consider counseling, fup, prescription 01/05/18 1800 <Electronically signed by Jennifer JOAQUIN> Date Jennifer JOAQUIN Cosigner Signature: Date (if applicable) CC: HEMOGLOBIN A1C Collected: 12/03/2017 Status: F Source: [place] 9:18 AM [facility] REPOSITORY TYPE CODE TESTS RESULT OUT OF RANGE REFERENCE UNITS LAB L501.9985 4.2-6.3 % High HGB A1C 9.9 Performed By: #### L501.9985 #### [facility] [address] [place], [address] INTERNAL MEDICINE Observed: 12/03/2017 Status: F Source: ADITYA OFFICE VISIT 8:57 AM [facility] REPOSITORY [facility] [address] [place] [address] OFFICE VISIT Date of Service: 12/03/17 MR#: [id number] Acct: [id number] Name: MARIAELENA BERMAN Rep #: [id number] : 1945 Provider: Rashaun Blake DO Age/Sex: 72/F Location: [facility] Status: Signed Intake Vital Signs12/03/17 Height 5 ft 12/03/17 Weight: 173 lb 12/03/17 Body Mass Index (BMI) 33.7 12/03/17 Blood Pressure 135/78 Intake Visit Reasons: 3 M FU Chief Complaint: 3 Mo follow-up visit Diabetes, Check Lt ear Is patient in pain?: No Allergies canagliflozin [From Invokana] Allergy (Severe, Verified 12/03/17 08:30) Itching oranade Allergy (Severe, Uncoded 12/03/17 08:30) Other Medications acetaminophen 325 mg capsule 325 mg PO Q6H PRN 09/03/17 [History Confirmed 12/03/17] amitriptyline 25 mg tablet 25 mg PO QHS #90 tab 09/03/17 [Rx Confirmed 12/03/17] arthro 8 PO 09/03/17 [History Confirmed 12/03/17] ascorbate calcium 500 mg tablet 500 mg PO QDAY 09/03/17 [History Confirmed 12/03/17] ascorbic acid (vitamin C) 500 mg capsule mg PO 09/03/17 [History Confirmed 12/03/17] aspirin 81 mg tablet,delayed release 81 mg PO QDAY 09/03/17 [History Confirmed 12/03/17] esomeprazole magnesium 20 mg capsule,delayed release 20 mg PO QDAY 09/03/17 [History Confirmed 12/03/17] flaxseed oil 1,000 mg capsule 1,000 mg PO QDAY 09/03/17 [History Confirmed 12/03/17] metformin ER 1,000 mg tablet,extended release 24hr 1,000 mg PO QDAY #90 tab 09/03/17 [Rx Confirmed 12/03/17] metoprolol succinate ER 50 mg tablet,extended release 24 hr 50 mg PO QDAY #90 tab 09/03/17 [Rx Confirmed 12/03/17] multivitamin tablet 1 tab PO QAM 09/03/17 [History Confirmed 12/03/17] nutra calm PO 09/03/17 [History Confirmed 12/03/17] pravastatin 10 mg tablet 10 mg PO QHS #90 tab 09/03/17 [Rx Confirmed 12/03/17] sitagliptin 100 mg tablet 100 mg PO QDAY #90 tab 09/03/17 [Rx Confirmed 12/03/17] valsartan 320 mg-hydrochlorothiazide 25 mg tablet 0.5 tab PO QDAY tab 12/03/17 [History Confirmed 12/03/17] [facility] Medical History Mitral valve prolapse (Chronic) Seasonal allergic rhinitis (Chronic) Cataracts, bilateral (Chronic) Chronic back pain (Chronic) GERD (gastroesophageal reflux disease) (Chronic) Hyperlipemia (Chronic) Hypertension (Chronic) Type 2 diabetes mellitus (Chronic) Surgical History History of cholecystectomy (Acute) History of foot surgery (Acute) History of hysterectomy (Acute) History of tonsillectomy (Acute) Family History Mother Cancer ovarian Arthritis Diabetes Depression Father Respiratory disease Arthritis Heart disease Grandfather Heart disease Myocardial infarction Brother Parkinsons Sister Diabetes Aunt Thyroid disorder Arthritis Diabetes Social History Smoking Status: Never smoker alcohol intake: never substance use type: does not use what type of physical activity do you participate in: walking frequency: daily HPI HPI Chief Complaint: 3 Mo follow-up visit Diabetes, Check Lt ear Details: MARIAELENA BERMAN, is a 72 F who presents to the office today for ROS Const Constitutional: No chills, fatigue, fever(s), frequent falls, malaise, weakness, sleep problems or change in appetite Eyes Eyes: No blurry vision, change in vision, double vision, discharge or visual disturbances ENT ENT: Positive for ear pressure (Lt ear) and hearing loss (Lt ear); no abnormal hearing, ear pain, tinnitus or dizziness/vertigo Resp Respiratory: No cough, shortness of breath or wheezing Cardio Cardiology: No chest pain at rest, chest pain with exertion, shortness of breath, dyspnea on exertion, generalized swelling, irregular heart rhythm, lightheadedness, orthopnea, fast heart rate or palpitations Gastro GI: No abdominal pain, change in bowel habits, constipation, diarrhea, nausea/dyspepsia or vomiting Genitourinary-Female: No difficulty urinating, burning urination, painful urination, urinary incontinence, urinary frequency, urinary urgency, urinary hesitancy, urinary retention, Frequent nighttime urination/ nocturia, sexual problems, genital lesions, abnormal vaginal bleeding, pelvic pain, vaginal dryness, vaginal odor or Vaginal Itching Musc Musculoskeletal: No joint pain, back pain, joint swelling, limited range of motion, muscle weakness, numbness or tingling Skin Skin: No change in skin color, itching, rash or wounds Breast Breast: No breast lump or breast pain Neuro Neurology: No frequent falls, weakness, abnormal hearing, numbness, tingling, unsteady gait/balance, dizziness, loss of vision, memory loss or visual disturbances Psych Psychiatric: No memory loss, No anxiety, No change in appetite, No depression, No Thoughts of harming yourself/Others Endo Endocrine: No fatigue, heat intolerance, increased thirst/drinking, increased hunger or increased urination Aller/Imm Allergy/Immunologic: No wheezing, itchy eyes or seasonal allergy symptoms Kvng/Lymp Hematologic/Lymphatic: No easy bleeding, easy bruising or enlarged lymph nodes Exam Const General: healthy appearing Nutritional Appearance: overweight Orientation: oriented x3 Eyes General: appearance normal, both eyes and all related structures (she has yearly eye exams) Neck Neck mass: No Thyroid: thyroid normal Resp Effort AND Inspection: normal respiratory effort Auscultation: Bilateral: Clear to Auscultation Cardio Rate: regular rate Rhythm: regular rhythm Musc Musculoskeletal: No muscle weakness Skin General: no rashes or lesions noted Neuro General: oriented x3 Assessment AND Plan Problems 1. Type 2 diabetes mellitus E11.9 2. Essential hypertension I10 3. Mixed hyperlipidemia E78.2 4. Mitral valve prolapse I34.1 5. Seasonal allergic rhinitis J30.2 Plan This patient is in for a routine diabetic check she has no complaints other than the fullness of the year but that exam was completely normal. Her hemoglobin A1c was elevated at her last visit hopefully will be improved orders were written and medications were discussed. Orders Orders: Medications Changed: Coding Level of Care Code Off vis,est,level 3 Diagnoses Type 2 diabetes mellitus E11.9 Diabetes mellitus complication status: without complication Essential hypertension I10 Hypertension type: essential hypertension Mixed hyperlipidemia E78.2 Hyperlipidemia type: mixed hyperlipidemia Mitral valve prolapse I34.1 Seasonal allergic rhinitis J30.2 12/03/17 0857 <Electronically signed by Rashaun Blake DO> Date Rashaun Blake DO Cosigner Signature: Date (if applicable) CC: LIPID PROFILE Collected: 09/05/2017 Status: F Source: ADITYA 9:35 AM [facility] REPOSITORY TYPE CODE TESTS RESULT OUT OF RANGE REFERENCE UNITS LAB L501.4900 200 mg/dL Normal CHOL 116 Result Comment: <200 mg/dL Desirable 200-240 mg/dL Borderline >240 mg/dL High Risk LAB L501.5000 mg/dL High TRIG 226 Result Comment: The drugs N-Acetylcysteine and Metamizole may falsely depress this assay. Serum Triglycerides Reference Interval Normal <150 mg/dL Borderline high 150 - 199 mg/dL High 200 - 499 mg/dL Very High > or = 500 mg/dL LAB L501.6400 mg/dL Normal HDL 41 Result Comment: The drugs N-Acetylcysteine and Metamizole may falsely depress this assay. Reference Range HDL <40 mg/dL Low HDL Cholesterol HDL >or= 60 mg/dL High HDL Cholesterol LAB L501.6500 0-130 mg/dL Normal LDL 30 LAB L501.6600 5-40 mg/dL High VLDL 45 Performed By: #### L500.4100 #### [facility] [address] [place], [address] HEMOGLOBIN A1C Collected: 09/05/2017 Status: F Source: ADITYA 9:35 AM [facility] REPOSITORY TYPE CODE TESTS RESULT OUT OF RANGE REFERENCE UNITS LAB L501.9985 4.2-6.3 % High HGB A1C 9.8 Performed By: #### L501.9985 #### [facility] [address] [place], [address] INTERNAL MEDICINE Observed: 09/03/2017 Status: F Source: ADITYA OFFICE VISIT 3:39 PM [facility] REPOSITORY [facility] [address] [place] [address] OFFICE VISIT Date of Service: 09/03/17 MR#: [id number] Acct: [id number] Name: MARIAELENA BERMAN Rep #: [id number] : 1945 Provider: Rashaun Blake DO Age/Sex: 72/F Location: [facility] Status: Signed Intake Vital Signs09/03/17 Height 5 ft Intake Visit Reasons: CHECK UP Chief Complaint: follow-up visit Is patient in pain?: Yes (lower abdominal) Pain scale (1-10): 5 Allergies canagliflozin [From Invokana] Allergy (Severe, Verified 09/03/17 14:58) Itching oranade Allergy (Severe, Uncoded 09/03/17 14:58) Other Medications acetaminophen 325 mg capsule 325 mg PO Q6H PRN 09/03/17 [History Confirmed 09/03/17] amitriptyline 25 mg tablet 25 mg PO QHS #90 tab 09/03/17 [Rx Confirmed 09/03/17] arthro 8 PO 09/03/17 [History Confirmed 09/03/17] ascorbate calcium 500 mg tablet 500 mg PO QDAY 09/03/17 [History Confirmed 09/03/17] ascorbic acid (vitamin C) 500 mg capsule mg PO 09/03/17 [History Confirmed 09/03/17] aspirin 81 mg tablet,delayed release 81 mg PO QDAY 09/03/17 [History Confirmed 09/03/17] esomeprazole magnesium 20 mg capsule,delayed release 20 mg PO QDAY 09/03/17 [History Confirmed 09/03/17] flaxseed oil 1,000 mg capsule 1,000 mg PO QDAY 09/03/17 [History Confirmed 09/03/17] metformin ER 1,000 mg tablet,extended release 24hr 1,000 mg PO QDAY #90 tab 09/03/17 [Rx Confirmed 09/03/17] metoprolol succinate ER 50 mg tablet,extended release 24 hr 50 mg PO QDAY #90 tab 09/03/17 [Rx Confirmed 09/03/17] multivitamin tablet 1 tab PO QAM 09/03/17 [History Confirmed 09/03/17] nutra calm PO 09/03/17 [History Confirmed 09/03/17] pravastatin 10 mg tablet 10 mg PO QHS #90 tab 09/03/17 [Rx Confirmed 09/03/17] sitagliptin 100 mg tablet 100 mg PO QDAY #90 tab 09/03/17 [Rx Confirmed 09/03/17] valsartan 320 mg-hydrochlorothiazide 25 mg tablet 1 tab PO QDAY #90 tab 09/03/17 [Rx Confirmed 09/03/17] Post menopausal: Yes PFSH Medical History Mitral valve prolapse (Chronic) Seasonal allergic rhinitis (Chronic) Cataracts, bilateral (Chronic) Chronic back pain (Chronic) GERD (gastroesophageal reflux disease) (Chronic) Hyperlipemia (Chronic) Hypertension (Chronic) Type 2 diabetes mellitus (Chronic) Surgical History History of cholecystectomy (Acute) History of foot surgery (Acute) History of hysterectomy (Acute) History of tonsillectomy (Acute) Family History Mother Cancer ovarian Arthritis Diabetes Depression Father Respiratory disease Arthritis Heart disease Grandfather Heart disease Myocardial infarction Brother Parkinsons Sister Diabetes Aunt Thyroid disorder Arthritis Diabetes Social History Smoking Status: Never smoker alcohol intake: never substance use type: does not use what type of physical activity do you participate in: walking frequency: daily HPI HPI Chief Complaint: follow-up visit Details: MARIAELENA BERMAN, is a 72 F who presents to the office today for a recheck on her diabetes and cholesterol. She has some rather minor aches and pains, but basically is doing well ROS Const Constitutional: No weight change, body ache, chills, fatigue, sleep problems, fever(s), change in appetite, snoring, weakness, frequent falls, headache(s) or excessive sweating Eyes Eyes: No change in vision, eye pain, light sensitivity or blurry vision ENT ENT: No headache(s), abnormal hearing, ear pain, tinnitus, nasal congestion, sore throat or neck pain Resp Respiratory: No snoring, cough, shortness of breath or wheezing Cardio Cardiology: No excessive sweating, chest pain at rest, chest pain with exertion, shortness of breath, dyspnea on exertion, palpitations, orthopnea or lightheadedness Gastro GI: Positive for abdominal pain, bloating and heartburn; no change in bowel habits, constipation, diarrhea, vomiting, nausea/dyspepsia or cramping Genitourinary-Female: Positive for urinary incontinence; no burning urination, painful urination, urinary frequency, abnormal vaginal bleeding, pelvic pain or other Musc Musculoskeletal: No neck pain, abnormal walking, joint pain, back pain, limited range of motion, numbness or tingling Skin Skin: No redness, dry skin, itching, lesions, wounds or rash Neuro Neurology: No weakness, frequent falls, headache(s), abnormal hearing, abnormal walking, numbness, tingling, abnormal speech, dizziness or memory loss Psych Psychiatric: No change in appetite, No memory loss, No anxiety, No depression, No Thoughts of harming yourself/Others Endo Endocrine: No fatigue, excessive sweating, cold intolerance, increased thirst/drinking, heat intolerance, flushing or increased hunger Aller/Imm Allergy/Immunologic: No wheezing, itchy eyes, hives or seasonal allergy symptoms Kvng/Lymp Hematologic/Lymphatic: No easy bleeding, easy bruising or enlarged lymph nodes Exam Const General: cooperative Nutritional Appearance: overweight Orientation: oriented x3 Resp Effort AND Inspection: normal respiratory effort Auscultation: Bilateral: Clear to Auscultation Cardio Palpation: normal PMI Rate: regular rate Rhythm: regular rhythm Heart Sounds: S1 normal, S2 normal Skin General: no rashes or lesions noted Neuro General: normal sensation to monofilament Extrem General: normal to inspection, no pedal edema Assessment AND Plan 1. Mixed hyperlipidemia E78.2 Plan Blood work was ordered and medications were refilled. 2. Essential hypertension I10 Plan Blood pressure is under good control. 3. Type 2 diabetes mellitus E11.9 Plan Hemoglobin A1c's were ordered she says her home blood sugars are okay this been no significant weight change or activity change. Orders Orders: Plan Detail Other Orders Orders: Other Medications New: Follow Up 3 Months Coding Level of Care Code Off vis,est,level 3 Diagnoses Mixed hyperlipidemia E78.2 Hyperlipidemia type: mixed hyperlipidemia Essential hypertension I10 Hypertension type: essential hypertension Type 2 diabetes mellitus E11.9 Diabetes mellitus complication status: without complication 09/03/17 1539 <Electronically signed by Rashaun Blake DO> Date Rashaun Blake DO Cosigner Signature: Date (if applicable) CC: LIPID Collected: 07/04/2017 Status: F Source: [facility] 8:58 AM [facility] REPOSITORY TYPE CODE TESTS RESULT OUT OF REFERENCE UNITS RANGE LAB CHOL(LOINC 131-200 mg/dL ) Cholesterol 138 Result Comment: Cholesterol Reference Interval: Less than 200 Desirable 200-239 Borderline high risk 240 and above High risk LAB TRIG(LOINC) 40-150 mg/dL Triglycerides High 282 Result Comment: Triglyceride Reference Interval: Less than 150 Normal 150-199 Borderline high risk 200-499 High risk 500 or higher Very high risk LAB HD(LOINC) 35-90 mg/dL HDL Cholesterol 43 Result Comment: HDL Reference Interval: Less than 40 Low - high risk 60 or above Optimal/lowers risk LAB LDL(LOINC) 0-130 mg/dL LDL Cholesterol 39 Result Comment: LDL is a calculated result and requires a 12-hr fast. LDL Reference Interval: Less than 100 Optimal 100-129 Near or above optimal 130-159 Borderline high risk 160-189 High risk 190 and above Very high risk Performed By: #### LIPID, CMP, GFR #### [address] [address] CMP Collected: 07/04/2017 Status: F Source: [facility] 8:58 AM [facility] REPOSITORY TYPE CODE TESTS RESULT OUT OF REFERENCE UNITS RANGE LAB 1547-9 83-110 mg/dL GLUCOSE High 231 LAB NA(LOINC) 136-146 mEq/L Sodium Level 136 LAB K(LOINC) 3.5-5.1 mEq/L Potassium Level 4.5 LAB CL(LOINC) 98-107 mEq/L Low Chloride 97 LAB CO2(LOINC) 23-31 mEq/L CO2 29 LAB EBAL(LOINC mEq/L ) Electrolyte Balance 10.0 LAB BUN(LOINC) 7.0-18.0 mg/dL BUN 16.9 LAB CRE(LOINC) 0.6-1.2 mg/dL Creatinine Lvl (s) 1.0 LAB BC(LOINC) 7-27 ratio BUN/Creatinine 17 Ratio LAB CA(LOINC) 8.4-10.2 mg/dL Calcium Lvl 9.4 LAB PROT(LOINC 6.0-8.3 G/dL ) Total Protein 7.1 LAB ALB(LOINC) 3.4-4.8 G/dL Albumin Level 4.0 LAB GLB(LOINC) G/dL Globulin 3.1 LAB AG(LOINC) 1.1-2.5 ratio A/G Ratio 1.3 LAB BILT(LOINC 0.2-1.0 mg/dL ) Bili Total 0.6 LAB AP(LOINC) 40-135 IU/L Alk Phos 62 LAB AST(LOINC) 10-40 IU/L AST/SGOT High 43 LAB ALT(LOINC) 10-35 IU/L ALT/SGPT High 37 Performed By: #### LIPID, CMP, GFR #### [address] [place], [place] [address] .GFR Collected: 07/04/2017 Status: F Source: [facility] 8:58 AM [facility] REPOSITORY TYPE CODE TESTS RESULT OUT OF REFERENCE UNITS RANGE LAB GFRAA(LOINC ml/min/1.73 ) sqm GFR 70 [place] Result Comment: GFR Population mean for , Non- Americans Ages 20-29 = 116 mL/min/1.73 sq.m. Ages 30-39 = 107 mL/min/1.73 sq.m. Ages 40-49 = 99 mL/min/1.73 sq.m. Ages 50-59 = 93 mL/min/1.73 sq.m. Ages 60-69 = 85 mL/min/1.73 sq.m. Ages 70+ = 75 mL/min/1.73 sq.m. Chronic Kidney Disease: Less than 60 mL/min/1.73 square meters End Stage Renal Disease: Less than 15 mL/min/1.73 square meters LAB GFRNO(LOINC) ml/min/1.73sqm GFR Non- 58 Result Comment: GFR Population mean for , Non- Americans Ages 20-29 = 116 mL/min/1.73 sq.m. Ages 30-39 = 107 mL/min/1.73 sq.m. Ages 40-49 = 99 mL/min/1.73 sq.m. Ages 50-59 = 93 mL/min/1.73 sq.m. Ages 60-69 = 85 mL/min/1.73 sq.m. Ages 70+ = 75 mL/min/1.73 sq.m. Chronic Kidney Disease: Less than 60 mL/min/1.73 square meters End Stage Renal Disease: Less than 15 mL/min/1.73 square meters Performed By: #### LIPID, CMP, GFR #### [address] [address] ALLERGIES ALLERGIES DATE TYPE / CODE NAME / CODE REACTION SEVERITY SOURCE 05/04/2018 Drug venom-honey Unknown Unknown [place] Allergy/375610376(S bee/[id number] Community NOMED CT) 8(RXNORM) Hospital Repository 05/04/2018 Drug canagliflozin Itching SV [place] Allergy/049595975(S /[id number](R Community NOMED CT) XNORM) Hospital Repository 05/04/2018 Miscellaneous oranade Other SV [place] Allergy/184731266(S Community NOMED CT) Hospital Repository ENCOUNTERS ENCOUNTERS ADMIT/DISCHARGE ACCOUNT NUMBER ADMITTING ENCOUNTER LOCATION SOURCE CLASS 05/25/2018/05/25/19 [id number] Ambulatory BBuilding:[address] Repository 05/04/2018 [id number] Ambulatory [facility] ding:LAB Repository 05/04/2018/05/04/20 [id number] Ambulatory BMSBuilding: [place] 18 BMS.[facility] Repository 03/09/2018 [id number] Ambulatory [facility] ding:MTLAB Repository 03/04/2018/03/04/20 [id number] Ambulatory BMSBuilding: [place] 18 BMS.[facility] Repository 02/09/2018/02/10/20 [id number] Ambulatory [address] ding:[facility] Repository 02/02/2018/02/03/20 [id number] Ambulatory BMSBuilding: [place] 18 BMS.[facility] Repository 01/05/2018/01/06/20 [id number] Ambulatory BMSBuilding: [place] 18 BMS.[facility] Repository 12/03/2017 [id number] Ambulatory [facility] ding:MTLAB Repository 12/03/2017/12/04/19 [id number] Ambulatory BMSBuilding: [place] 18 BMS.[facility] [place] 09/05/2017 [id number] Ambulatory [facility] ding:MTLAB Repository 09/03/2017/09/04/19 [id number] Ambulatory BMSBuilding: [place] 18 BMS.[facility] Repository 07/04/2017/07/04/[id number] ding:[facility] Repository PAYERS PAYERS ENCOUNTER GUARANTOR PAYER SUBSCRIBER SOURCE 05/25/2018 MARIAELENA Estrada Primary MARIAELENA Hernandesltman [facility] GEISERDOB: Insurance:MEDICARE GEISERDOB: [facility] [id number] PART B INSC[employer]icy [id number] Repository [facility] Number: [address] [place], [place] [id number] [place] [address]~[place] Date:2018-04-28Tel: [phone] [email or web address] [id number] [phone] .NETTel: [phone]) Name:[facility] (HP) Administrators [facility] [phone] (WP) ()Tel: [address] [place] [address] [phone] (WP) 530[address]EU: 05/25/2018 Secondary MARIAELENA Camara [facility] Insurance:MEDICAL GEISERDOB: [facility] [id number] Repository [employer] Number: [address] [id number] [place], [place] Date:2018-05-25 [id number]: [phone] [id number] [phone] Name:[address] (HP)Tel: [phone], [place] [phone] (WP) [address]AD: 05/04/2018 MARIAELENA Natalie Primary MARIAELENA Estrada Ad[place]a [id number] Insurance:MEDICARE GEISERDOB: [facility] PART A BPolicy Number: [id number], [place] [id number] Repository [address]Nmu: 330) Date:2018-05-04 [phone] (HP) 05/04/2018 Secondary MARIAELENA Estrada Aditya Insurance:AARPPolicy GEISERDOB: [facility] Number: [id number] [id number] Repository Date:7009-67-92[address], [place] [address]AH: 05/04/2018 Tertiary NOT GIVENUNK [place] Insurance:SELF PAY [facility] Number: Effective Repository Date:2018-05-04 05/04/2018 MARIAELENA Estrada Primary MARIAELENA Burgess [id number] Insurance:MEDICARE GEISERDOB: [facility] PART A BPolicy Number: [id number], [place] [id number] Repository [address]Wnk: [phone]) Date:2018-02-02 [phone] () 05/04/2018 Secondary MARIAELENA Burgess Insurance:AARPPolicy GEISERDOB: Community Number: [id number] [id number] Repository Date:2592-07-20[address], [place] [address]CT: 05/04/2018 Tertiary NOT GIVENUNK [place] Insurance:SELF PAY [facility] Number: Effective Repository Date:2018-05-04 03/09/2018 MARIAELENA Estrada Primary MARIAELENA Estrada Adity[place] [id number] Insurance:MEDICARE GEISERDOB: [facility] PART BPolicy Number: [id number], [place] [id number] Repository [address]Enz: (330) Date:2018-03-09 [phone] () 03/09/2018 Secondary MARIAELENA Burgess Insurance:AARPPolicy GEISERDOB: Community Number: [id number] [id number] Repository Date:5496-80-04[address], [place] [address]UX: 03/09/2018 Tertiary NOT GIVENUNK Aditya Insurance:SELF PAY [facility] Number: Effective Repository Date:2018-03-09 03/04/2018 MARIAELENA Estrada Primary MARIAELENA Burgess [id number] S Insurance:MEDICARE GEISERDOB: [facility] PART A BPolicy Number: [id number], [place] [id number] Repository [address]Uld: ([phone]) Date:2017-12-03 [phone] () 03/04/2018 Secondary MARIAELENA Burgess Insurance:AARPPolicy GEISERDOB: [facility] Number: [id number] Hospital [id number] Repository Date:2508-18-95[address], [place] [address]EU: 03/04/2018 Tertiary NOT GIVENUNK Aditya Insurance:SELF PAY [facility]: Effective Repository Date:2018-02-17 02/09/2018 MARIAELENA Estrada Primary MARIAELENA Estrada Jax [facility] GEISERDOB: Insurance:MEDICARE GEISERDOB: [facility] [id number] PART BPolicy Number: [id number] Repository [facility] [id number] [address], [place] Date:2018-02-09 [place] [address]~[facility] [id number]: [phone] [email or web address] Name:[facility] [phone] .NETTel: [phone]) Administrators LLCPO (HP) [address] [place] [address] [phone] (WP) (HP)Tel: [phone]: (WP) [phone] 02/09/2018 Secondary MARIAELENA [facility] Insurance:AARP [place] GEISERDOB: [facility] [id number] Repository ONLYPolicy Number: [address] [id number] [place], [place] Date:2018-02-09 [id number]: [phone] Name:LOADER HELPER Box (HP)Tel: 000 [id number], [place] 000-0000 (WP) [phone]: 02/02/2018 MARIAELENA Estrada Primary MARIAELENA Milanoster [id number] S Insurance:MEDICARE GEISERDOB: [facility] PART A BPolicy Number: [id number], [place] [id number] Repository 17497Wfr: ([phone]) Date:2018-01-05 [phone] () 02/02/2018 Secondary MARIAELENA Estrada Aditya Insurance:AARPPolicy GEISERDOB: Community Number: [id number] [id number] Repository Date:3415-34-95[address]DZNBCQN, [place] [address]NH: 02/02/2018 Tertiary NOT GIVENUNK [place] Insurance:SELF PAY [facility]: Effective Repository Date:2018-02-02 01/05/2018 MARIAELENA Estrada Primary MARIAELENA Estrada [place] [id number] S Insurance:MEDICARE GEISERDOB: [facility] PART A BPolicy Number: [id number], [place] [id number] Repository 08979Smq: ([phone]) Date:2017-12-03 [phone] () 01/05/2018 Secondary MARIAELENA Estrada [place] Insurance:AARPPolicy GEISERDOB: Community Number: [id number] [place] [address] [id number] Repository Date:8490-95-04UJ [address], [place] [address]HW: 01/05/2018 Tertiary NOT GIVENUNK Aditya Insurance:SELF PAY [facility] Number: Effective Repository Date:2018-01-05 12/03/2017 MARIAELENA Estrada Primary MARIAELENA Estrada [place] [id number] S Insurance:MEDICARE GEISERDOB: [facility] PART A BPolicy Number: [id number], [place] [id number] Repository 587[address]Rxu: (330) Date:2017-12-03 [phone] () 12/03/2017 Secondary MARIAELENA Estrada Aditya Insurance:AARPPolicy GEISERDOB: Community Number: [id number] [id number] Repository Date:[id number] [facility] [id number], [place] [address]MW: 12/03/2017 Tertiary NOT GIVENUNK [place] Insurance:SELF PAY [facility] Number: Effective Repository Date:2017-12-03 12/03/2017 MARIAELENA Estrada Primary MARIAELENA Estrada Aditya [id number] S Insurance:MEDICARE GEISERDOB: [facility] PART [facility] Number: [id number], [place] [id number] Repository 411[address]Bog: ([phone]) Date:2017-08-13 [phone] () 12/03/2017 Secondary MARIAELENA Estrada Aditya Insurance:AARPPolicy GEISERDOB: Community Number: [id number] [id number] Repository Date:6077-57-60FA [address]NDUCNPC, [place] [address]JO: 12/03/2017 Tertiary NOT GIVENUNK Aditya Insurance:SELF PAY [facility] Number: Effective Repository Date:2017-12-03 09/05/2017 MARIAELENA Estrada Primary MARIAELENA Milanoster [id number] S Insurance:MEDICARE GEISERDOB: [facility] Number: [id number], [place] [id number] Repository 25[address]Pta: ([phone]) Date:2017-09-05 [phone] () 09/05/2017 Secondary MARIAELENA Estrada [place] Insurance:AARPPolicy GEISERDOB: Community Number: [id number] [id number] Repository Date:9315-38-67ZJ [address]VTBKCWM, [place] [address]XU: 09/05/2017 Tertiary NOT GIVENUNK Aditya Insurance:SELF PAY [facility] Number: Effective Repository Date:2017-09-05 09/03/2017 MARIAELENA Estrada Primary MARIAELENA Estrada [place] [id number] S Insurance:MEDICARE GEISERDOB: [facility] PART A [facility] Number: [id number], [place] [id number] Repository 25055Tle: (330) Date:2017-08-13 [phone] () 09/03/2017 Secondary MARIAELENA Estrada [place] Insurance:AARPPolicy GEISERDOB: Community Number: [id number] Hospital [id number] Repository Date:2821-06-68XV [address]U, [place] [address]BY: 09/03/2017 Tertiary NOT GIVENUNK Aditya Insurance:SELF PAY [facility] Number: Effective Repository Date:2017-09-03 07/04/2017 MARIAELENA Primary MARIAELENA [facility] GEISERDOB: Insurance:MEDICARE GEISERDOB: [facility] [id number] PART BPolicy Number: [id number] [address] [id number] [address] [place], [place] Date:2017-07-04 [place] [address]~[place] [id number]: [phone] [email or web address] Name:[facility] .NETTel: ([phone]) [employer] () [address] [place] [address] 000-0000 (WP) ()Tel: [phone]: [phone] 07/04/2017 Secondary MARIAELENA Camara [facility] Insurance:AARP UNITED GEISERDOB: [facility] [id number] Repository Number: [address] [id number] [place], [place] Date:2017-07-04 [id number]: [phone] [phone] Name:LOADER HELPER Box (HP)Tel: [phone], [place] 000-0000 (WP) [phone]:
== END ==
PROVIDERS: Family Provider Family Medicine; PCP Family Medicine; Referring Provider Nurse Practitioner; Visit Provider Nurse Practitioner
DX: E11.9 Type 2 diabetes mellitus without complications (principal)
CPT/HCPCS: 36415; 82043; 82570

== ENCOUNTER → 2019-02-23 | Outpatient (CLI) | payer MEDICARE, OTHER, SELFPAY ==
[2019-02-23 10:50] VITALS: BMI 31.9
[2019-02-23 14:30] LABS: ALB/GLOB Ratio 0.9 RATIO (0.9-2.4); AST(SGOT) 37 U/L (15-37); Alanine Aminotransfer ALT/SGPT 40 U/L (13-56); Albumin, Serum 3.6 g/dL (3.2-5.0); Alkaline Phosphatase 70 U/L (45-117); Anion Gap 9 (5-15); BUN 23 mg/dL (7-18); BUN/Creat Ratio 21.7 RATIO (10-20); Calcium,Total 9.2 mg/dL (8.5-10.1); Chloride 101 mmol/L (98-107); Cholesterol 110 mg/dL (200); Creatinine, Serum 1.06 mg/dL (0.55-1.02); EST Glomerular Filtration Rate 54 mL/min (>60); Est Glom Filt Rate - Afr Amer 66 mL/min (>60); Globulin 3.9 g/dL (2.2-4.2); Glucose 156 mg/dL (74-106); High Density Lipoprotein 45 mg/dL; Protein, Total 7.5 g/dL (6.4-8.2); Sodium Level 137 mmol/L (136-145); Triglycerides 185 mg/dL; Very Low Density Lipoprotein 37 mg/dL (5-40)
== END | disposition home or self-care (01) ==
PROVIDERS: Family Provider Family Medicine; PCP Family Medicine; Visit Provider Family Medicine
DX: I10 Essential (primary) hypertension (principal)
CPT/HCPCS: 36415; 80053; 80061

== ENCOUNTER → 2020-10-11 10:30 | Outpatient (CLI) | payer MEDICARE, SELFPAY ==
[2020-10-11 09:44] VITALS: BMI 34.0
[2020-10-11 12:53] LABS: ALB/GLOB Ratio 0.9 RATIO (0.9-2.4); AST(SGOT) 37 U/L (15-37); Alanine Aminotransfer ALT/SGPT 38 U/L (13-56); Albumin, Serum 3.6 g/dL (3.2-5.0); Alkaline Phosphatase 75 U/L (45-117); Anion Gap 9 (5-15); BUN 25 mg/dL (7-18); BUN/Creat Ratio 22.9 RATIO (10-20); Calcium,Total 9.5 mg/dL (8.5-10.1); Chloride 101 mmol/L (98-107); Cholesterol 147 mg/dL (200); Creatinine, Serum 1.09 mg/dL (0.55-1.02); EST Glomerular Filtration Rate 52 mL/min (>60); Est Glom Filt Rate - Afr Amer 63 mL/min (>60); Globulin 3.8 g/dL (2.2-4.2); Glucose 226 mg/dL (74-106); High Density Lipoprotein 44 mg/dL; Potassium 4.7 mmol/L (3.5-5.1); Protein, Total 7.4 g/dL (6.4-8.2); Sodium Level 135 mmol/L (136-145); Triglycerides 322 mg/dL; Very Low Density Lipoprotein 64 mg/dL (5-40)
[2020-10-11 13:45] LABS: Microalbumin:Creatinine Ratio 928.9 mg/g CRE (<30 mg/g CRE)
== END ==
PROVIDERS: PCP Family Medicine; Referring Provider Family Medicine; Visit Provider Family Medicine
DX: E11.9 Type 2 diabetes mellitus without complications (principal)
CPT/HCPCS: 36415; 80053; 80061; 82043; 82570

== ENCOUNTER 2020-12-05 07:30 | Day surgery (SDC) | payer MEDICARE, SELFPAY ==
[2020-10-11 09:44] VITALS: BMI 34.0
--- NOTE | 2020-12-05 | BLA_PTH ---
PATIENT: JEFFERY MURPHY LOC: [facility] U#:[id number] AGE/SX: 75/F ROOM: RE12/05/[address]: Dr. Brianda Galeana MD : 1945 BED: DIS: 12/05/2020 SPEC #: [id number] RECD: 12/05/20 13:03 STATUS: DEMETRIA REBobbi #: [id number] JOANN: 12/05/20 00:[address]: Brianda Galeana DEPT: SURGICAL PATHOLOGY RECD BY: Jagdeep Arenas ENTERED: 12/05/20 13:03 SP TYPE: BLADDER BX OTHR DR: Dr. Delfin Blake, DO Tissues: Urinary bladder, NOS Procedures: Surgery Specimen Level IV HEADER OPERATION: Cysto, biopsy, fulguration, bladder tumor PRE-OP DIAGNOSIS: Urge incontinence, nocturia, neoplasm of bladder TISSUE SUBMITTED: Bladder tumor biopsies MICROSCOPIC DIAGNOSIS Urinary bladder tumor, biopsy: Chronic follicular cystitis. See comment. AM:gwendolyn 12/06/2020 COMMENT Detrusor muscle is not represented in the biopsy. Clinical correlation is suggested. MICROSCOPIC DESCRIPTION Slides are reviewed. GROSS DESCRIPTION Received in fixative is one container labeled with the patient's name and designated bladder tumor biopsy. The specimen consists of multiple irregular fragments of light downing soft tissue that in aggregate measure 0.6 x 0.2 x 0.1 cm. The specimen is totally submitted in one cassette. / SJ:gwendolyn 12/05/20 TC:3 CPT: 70020
[2020-12-05] MEDS: Lactated Ringers 1,000 ML 100 ML IV (08:15)
--- NOTE | 2020-12-05 08:31 | OP.PCM_ITS ---
Problems Associated Problem List Diagnoses (1) Lesion of urinary bladder: Report of Operation Date of Procedure: 12/05/20 Pre-Operative Diagnosis: Lesion of the urinary bladder Post-Operative Diagnosis: Same Surgery/Procedure Performed:: Cystoscopy, bladder biopsy with fulguration Surgeon: Brianda Galeana Type of Anesthesia: MAC Specimen's removed: bladder biopsy Description of Procedure: The patient is a 75-year-old female who underwent a cystoscopy in the office in preparation for management of her incontinence. At this time an area on her bladder approximately 1.5 cm in size was identified. It is erythematous and oozing actively. Informed consent was obtained to proceed with biopsy under anesthesia and this is what the patient presents for today. The patient was taken the operating room placed on the operating room table. Anesthesia monitored the head, neck, airway, IV access and vital signs th roughout the case. Once anesthesia was appropriate ministered the patient was placed into dorsal lithotomy position was prepped and draped in usual sterile fashion. The cystoscope was then inserted under direct visualization into the urinary bladder through the urethra. The known lesion was identified and one other as well on the dome of the bladder. Each lesion was erythematous and flat, consistent with an ulceration and inflammation. Both were approximately 1.5 cm in diameter. Both areas were biopsied and fulgurated for hemostatic control and tissue treatment. The patient's bladder was then emptied and the case was terminated. She was awakened and taken to the recovery room in good condition. There were no complications during the procedure. Grafts/Implants Used: none Complications none Admit VTE Documentation VTE Present on Admission: Yes VTE Mechan Device Prophylaxis: SCD's VTE Pharm Prophylaxis ordered?: No Reason prophylaxis not ordered:: Treatment Not Indicated
[2020-12-05 08:34] VITALS: BP 176/76; PULSE 75; RESP 75; TEMP 36.1; O2SAT 99; BMI 75.3
--- NOTE | 2020-12-05 08:34 | PCM.DC ---
Discharge Instructions Diet Discharge Diet: No restrictions Activity Discharge Activity: Return to Normal Activity Dressing / Incision Call your doctor if you observe: Fever of 101 or Higher, Inability to urinate, Inability to have a bowel movement and Uncontrolled pain Follow Up Care Please Follow Up With: Brianda Galeana MD Test Results: Test results from this visit will be discussed in further detail at your follow-up appointment, if applicable. Discharge Plan Admission Attending Provider: Brianda Galeana Primary Care Provider: Delfin Blake Discharge Orders/Prescriptions Prescriptions: New oxycodone-acetaminophen [oxycodone-acetaminophen] 1 TABLET tablet 2 tab PO Q8H PRN PRN (Reason: Pain) 7 Days Qty: 10 RF: 0 cephalexin [cephalexin] 500 MG capsule 500 mg PO Q12 3 Days Qty: 6 RF: 0 Continued flaxseed oil 1,000 mg capsule 1,000 mg PO QDAY RF: 0 multivitamin tablet 1 tab PO QAM RF: 0 nutra calm 2 tab PO QHS RF: 0 acetaminophen [Tylenol] 325 mg capsule 325 mg PO Q6H PRN (Reason: Pain) RF: 0 (DME) OneTouch Ultra Blue Test Strip strip See Dose Instructions .ROUTE .MEDSUPPLY Qty: 50 RF: 11 magnesium oxide 400 mg (241.3 mg magnesium) tablet 400 mg PO DAILY RF: 0 calcium carbonate [Calci-Chew] 500 mg calcium (1,250 mg) tablet,chewable 500 mg PO DAILY RF: 0 ascorbate calcium (vitamin C) 500 mg tablet 500 mg PO DAILY RF: 0 cholecalciferol (vitamin D3) 1,000 unit capsule 1,000 unit capsule 1,000 unit PO DAILY RF: 0 glipizide 5 mg tablet extended release 24hr 5 mg PO DAILY Qty: 90 RF: 1 aspirin 81 mg tablet,delayed release (DR/EC) 81 mg PO QDAY Qty: 90 RF: 3 Januvia 100 mg tablet 100 mg PO QDAY Qty: 90 RF: 2 valsartan-hydrochlorothiazide 320-25 mg tablet 0.5 tab PO QDAY Qty: 90 RF: 2 Hold Instructions: Home Medication placed on hold at Doctor's office amitriptyline 25 mg tablet 25 mg PO QHS Qty: 90 RF: 3 timolol maleate [Timoptic] 0.5 % drops 1 drp ophthalmic (eye) BID RF: 0 metformin 1,000 mg Tablet 1,000 mg PO QHS RF: 0 naproxen sodium [Aleve] 220 mg Capsule 220 mg PO BID PRN (Reason: Pain) RF: 0 PreserVision AREDS-2 250-90-40-1 mg Capsule 1 tab PO BID RF: 0 metoprolol succinate 50 mg tablet extended release 24 hr 50 mg PO QHS RF: 0 pravastatin 10 mg tablet 10 mg PO DAILY RF: 0 metformin 500 mg tablet extended release 24 hr 500 mg PO 0800 RF: 0 esomeprazole magnesium [Nexium] 20 mg capsule,delayed release(DR/EC) 25 mg PO QDAY RF: 0 Referrals / Follow Up: Delfin Blake DO [Primary Care Provider] - Disposition Disposition (needs filled in before D/C Order can be placed): Home, Self Care
[2020-12-05 08:51] VITALS: BMI 34.2
[2020-12-05 09:00] LABS: Bedside Glucose 183 mg/dL (70-110)
[2020-12-05] MEDS: Cefazolin 2 GM in 0.9% Normal Saline 100 ML IV (09:17)
[2020-12-05 09:45] VITALS: BP 131/58; BP 176/76; PULSE 77; RESP 18; TEMP 36.2; O2SAT 99
[2020-12-05 09:50] VITALS: BP 137/60; BP 176/76; PULSE 74; PULSE 75; RESP 18; RESP 20; O2SAT 96; O2SAT 97
[2020-12-05 09:55] VITALS: BP 131/61; BP 176/76; PULSE 74; RESP 18; O2SAT 97
[2020-12-05 10:01] VITALS: BP 137/68; BP 176/76; PULSE 72; RESP 18; TEMP 36.2; O2SAT 96
[2020-12-05 11:09] VITALS: BP 159/68; BP 176/76; PULSE 64; RESP 16; TEMP 36.7; O2SAT 96
== END 2020-12-05 11:18 | disposition home or self-care (01) ==
LOC: SDC 07:30 → AC 07:31
PROVIDERS: PCP Family Medicine; Referring Provider Urology; Visit Provider Urology
PROC: 0TBB8ZX Excision of Bladder, Via Natural or Artificial Opening Endoscopic, Diagnostic (ICD-10-PCS; CPT 52204; principal; 2020-12-05 09:05)
DX: N30.20 Other chronic cystitis without hematuria (principal); N81.10 Cystocele, unspecified; N39.41 Urge incontinence; N39.3 Stress incontinence (female) (male); R35.1 Nocturia; N95.2 Postmenopausal atrophic vaginitis; N94.10 Unspecified dyspareunia; I10 Essential (primary) hypertension; I34.1 Nonrheumatic mitral (valve) prolapse; K21.9 Gastro-esophageal reflux disease without esophagitis; M19.90 Unspecified osteoarthritis, unspecified site; J44.9 Chronic obstructive pulmonary disease, unspecified; E11.9 Type 2 diabetes mellitus without complications; E78.00 Pure hypercholesterolemia, unspecified; Z90.49 Acquired absence of other specified parts of digestive tract; Z90.710 Acquired absence of both cervix and uterus; Z79.84 Long term (current) use of oral hypoglycemic drugs; Z79.82 Long term (current) use of aspirin; Z79.899 Other long term (current) drug therapy; Z87.440 Personal history of urinary (tract) infections
CPT/HCPCS: 00910; 52204; 82962; 88305; J7120; J2405

== ENCOUNTER 2021-02-26 05:41 | Day surgery (SDC) | payer MEDICARE, SELFPAY ==
[2021-02-23 14:13] LABS: Hematocrit 37.5 % (37-47); Hemoglobin 12.5 g/dL (12.0-15.0); Mean Corp Hgb Conc 33.3 g/dL (32-36); Mean Corpuscular Hgb 29.4 pg (27.0-32.0); Mean Corpuscular Volume 88.2 fL (81-99); Mean Platelet Vol. 11.4 fl (6.2-12.0); Platelet Count 257 K/mm3 (150-450); RBC Distribution Width CV 13.7 % (11.6-14.6); RBC Distribution Width SD 44.6 fl (35.1-43.9); Red Blood Count 4.25 M/mm3 (4.2-5.4); White Blood Count 5.6 K/mm3 (4.4-11.0)
[2021-02-23 14:34] LABS: Anion Gap 5 (5-15); BUN 23 mg/dL (7-18); BUN/Creat Ratio 24.2 RATIO (10-20); Calcium,Total 9.1 mg/dL (8.5-10.1); Chloride 102 mmol/L (98-107); Creatinine, Serum 0.95 mg/dL (0.55-1.02); EST Glomerular Filtration Rate 61 mL/min (>60); Est Glom Filt Rate - Afr Amer 74 mL/min (>60); Glucose 138 mg/dL (74-106); Potassium 4.5 mmol/L (3.5-5.1); Sodium Level 137 mmol/L (136-145)
[2021-02-23 14:43] LABS: Hemoglobin A1c 7.6 % (3.8-5.6)
[2021-02-26] VITALS (7 sets, daily range): BP systolic 113–166; BP diastolic 64–85; PULSE 73–88; RESP 16; TEMP 36.1–36.5; O2SAT 98–100; BMI 31.4
[2021-02-26] MEDS: Lactated Ringers 1,000 ML 100 ML IV (06:35)
[2021-02-26 06:41] LABS: Bedside Glucose 153 mg/dL (70-110)
--- NOTE | 2021-02-26 07:25 | PCM.HP.STD ---
HPI - General HPI Narrative JEFFERY MURPHY, is a 75 F who presents for insertion of a mid urethral sling and perineoplasty for continued dyspareunia. Informed consent was obtained. She was evaluated preoperatively in the office with urodynamics and cystoscopy. [facility] Medical History (Updated 02/26/21 @ 07:[address] Brianda Galeana MD) Arthritis Back pain Bone fracture Cardiology follow-up encounter Cataracts, bilateral Chronic back pain Chronic headaches COPD (chronic obstructive pulmonary disease) Diabetes Dyspareunia in female Gastric reflux GERD (gastroesophageal reflux disease) Gout Hearing problem Heart murmur High cholesterol History of echocardiogram History of edema History of irregular heartbeat History of stress test Hyperlipemia Hypertension Injury of head and neck Leg cramps Lesion of urinary bladder Mitral valve prolapse Non-smoker Recurrent UTI Seasonal allergic rhinitis Type 2 diabetes mellitus Vision problem Wears glasses Home Medications acetaminophen 325 mg capsule 325 mg PO Q6H PRN 09/03/17 [History Last Taken Unknown] flaxseed oil 1,000 mg capsule 1,000 mg PO QDAY 09/03/17 [History Last Taken Unknown] multivitamin 1 tab PO QAM 09/03/17 [History Last Taken Unknown] nutra calm 2 tab PO QHS 09/03/17 [History Last Taken Unknown] blood sugar diagnostic #50 ea 05/04/18 [Rx Last Taken Unknown] ascorbate calcium (vitamin C) 500 mg tablet 500 mg PO DAILY 11/25/18 [History Last Taken Unknown] calcium carbonate 500 mg calcium (1,250 mg) chewable tablet 500 mg PO DAILY 11/25/18 [History Last Taken Unknown] cholecalciferol (vitamin D3) 25 mcg (1,000 unit) capsule 1,000 unit PO DAILY 11/25/18 [History Last Taken Unknown] magnesium oxide 400 mg (241.3 mg magnesium) tablet 400 mg PO DAILY 11/25/18 [History Last Taken Unknown] amitriptyline 25 mg tablet 25 mg PO QHS #90 tab 08/30/20 [Rx Last Taken Unknown] aspirin 81 mg tablet,delayed release 81 mg PO QDAY #90 tablet 08/30/20 [Rx Last Taken Unknown] glipizide 5 mg tablet, extended release 24 hr 5 mg PO DAILY #90 tablet 08/30/20 [Rx Last Taken Unknown] valsartan 320 mg-hydrochlorothiazide 25 mg tablet 0.5 tab PO QDAY #90 tab 08/30/20 [Rx Last Taken Unknown] timolol maleate 0.5 % eye drops 1 drp OPHTHALMIC (EYE) BID 10/11/20 [History Last Taken Unknown] PreserVision AREDS-2 1 tab PO BID 11/28/20 [History Last Taken Unknown] esomeprazole magnesium [Nexium] 25 mg PO QDAY 11/28/20 [History Last Taken 02/26/21] metoprolol succinate 50 mg PO QHS 11/28/20 [History Last Taken Unknown] naproxen sodium [Aleve] 220 mg PO BID PRN 11/28/20 [History Last Taken Unknown] pravastatin 10 mg PO DAILY 11/28/20 [History Last Taken Unknown] estradiol 1 g VAGINAL QWEEK 01/10/21 [History Last Taken Unknown] metformin 500 mg tablet,extended release 24 hr 500 mg PO 0800 #90 tab 01/10/21 [Rx Last Taken Unknown] mirabegron 50 mg tablet,extended release 24 hr 50 mg PO DAILY 01/10/21 [History Last Taken Unknown] dulaglutide [Trulicity] 1.5 mg SUBCUT SA 02/21/21 [History Last Taken Unknown] metformin 1,000 mg PO QHS 02/21/21 [History Last Taken Unknown] Allergy/AdvReac Type Severity Reaction Status Date / Time [facility]lo[facility] Allergy Severe Itching Verified 02/26/21 06:19 venom-honey bee Allergy Unknown Unknown Verified 02/26/21 06:19 oranade Allergy Severe Other Uncoded 02/26/21 06:19 Family History Mother Cancer ovarian Arthritis Diabetes Depression Father Respiratory disease Arthritis Heart disease Grandfather Heart disease Myocardial infarction Brother Parkinsons Sister Diabetes Aunt Thyroid disorder Arthritis Diabetes Surgical History History of cholecystectomy History of cystoscopy History of foot surgery History of hysterectomy History of tonsillectomy Hx of cystoscopy Social History Smoking Status: Never smoker alcohol intake: never substance use type: does not use what type of physical activity do you participate in: walking frequency: daily ROS Constitutional Constitutional: Denies fatigue, fever(s) or headache(s) Eyes Eyes: Denies change in vision or eye pain ENT HEENT: Denies dysphagia, ear pain, loss taste/smell or mouth pain Cardiovascular Cardiovascular: Denies chest pain, cyanosis, diaphoresis, dyspnea, lightheadedness or nausea Respiratory/Chest Respiratory/Chest: Denies change in mental status, chest congestion, chest tightness, cough, dyspnea, inability to speak, tachypnea or wheezing Gastrointestinal Gastrointestinal: Denies abdominal pain, anorexia, bloating, change in bowel habits, nausea, vomiting or weight changes Genitourinary Genitourinary: Reports urinary incontinence; Denies abdominal discomfort, burning urination or dysuria Musculoskeletal Musculoskeletal: Reports systems reviewed and no addt'l complaints, except as documented Integumentary Integumentary: Denies erythema, rash, skin ulcer or wounds Neurologic Neurologic: Denies abnormal movements, behavior changes, convulsions or numbness Psychiatric Psychiatric: Denies cognitive impairment or confusion Endocrine Endocrinology: Reports systems reviewed and no addt'l complaints, except as documented Hematologic/Lymphatic Hematologic/Lymphatic: Reports systems reviewed and no addt'l complaints, except as documented Allergic/Immunologic Allergic/Immunologic: Reports systems reviewed and no addt'l complaints, except as documented Vital Signs Vital Signs Vital Signs: 02/26/21 06:20 Temperature 97.6 F L Temperature Source Temporal Pulse Rate 73 Respiratory Rate 16 Respiratory Pattern Normal Blood Pressure 166/70 H Blood Pressure Mean 102 Blood Pressure Source Monitor Blood Pressure Position Semi-Fowlers Blood Pressure Location Right Arm Pulse Ox 100 Oxygen Delivery Method Room Air Weight Weight: 75.296 kg Body Mass Index (BMI) 31.4 Physical Exam Const alert, oriented x3 and no apparent distress General Appearance: cooperative and comfortable HEENT normocephalic, hearing grossly normal bilaterally and external ears normal Head and Scalp: normal to inspection Face and Sinus: face symmetric Nose: external nose normal External Ear: external ears normal Eyes conjunctivae normal and no scleral icterus General Eye: normal appearance of both eyes Neck General: normal visual inspection and trachea midline Lymph Lymphatic: no lymphedema noted Chest Chest: symmetrical chest wall rise Resp Effort and Inspection: able to speak in complete sentences and symmetric chest movement; Negative for respiratory distress, stridor or actively coughing Cardio regular rate and regular rhythm GI non-tender and non-distended no CVA tenderness Back/Spine no CVA tenderness Extremity normal to inspection and no calf tenderness Skin no rashes or lesions noted, no wounds, skin turgor normal, no jaundice, no petechiae and no mottling Neuro oriented x3, CN's II-XII intact bilaterally and moves all extremities Psych mental status grossly normal, thought process normal and cooperative Results Lab / Micro Data Result Diagrams: 02/23/21 13:04 02/23/21 13:04 Labs: Laboratory Results - last 24 hr 02/26/21 06:23: POC Glucose 153 H Assessment & Plan Assessment/Plan (1) Stress incontinence (female) (male): (2) Dyspareunia in female: PLAN: Proceed with mid urethral sling, cystoscopy and perineoplasty. Informed consent was obtained.
[2021-02-26] MEDS: Cefazolin 2 GM in 0.9% Normal Saline 100 ML IV (07:30)
[2021-02-26] MEDS: Lubricating Jelly 60 GM Tube 30 GM TOPICAL (07:39)
[2021-02-26] MEDS: Lidocaine 1% /Epi 1:100 (20ml) 20 ML Vial (08:00)
[2021-02-26] MEDS: Bacitracin 500 UNITS/GM PACKET (08:19)
--- NOTE | 2021-02-26 08:27 | DCINST_ITS ---
Discharge Instructions Diet Discharge Diet: No restrictions Activity Discharge Activity: May Shower May resume sexual activity in: 4-6 weeks Lifting Restrictions: 5 pounds for 4 weeks. Additional Activity Instructions:: No exercise, no strenuous activity, no sexual activity. Okay to shower, no tub bathing Dressing / Incision Call your doctor if your incision/area has: Continuous Slow Oozing, Sudden Increased Bleeding, Increased Pain/ Swelling, Increased Redness, Foul Smelling Discharge and Swelling at the incision site Call your doctor if you observe: Fever of 101 or Higher, Inability to urinate, Inability to have a bowel movement and Uncontrolled pain Catheter: Fine to leg bag Additional Dressing/Incision Instructions:: Fine will be removed Friday night prior to bed and will see me in the office on Friday. Follow Up Care Please Follow Up With: Brianda Galeana MD When: call office for appt Test Results: Test results from this visit will be discussed in further detail at your follow-up appointment, if applicable. Discharge Plan Admission Attending Provider: Brianda Galeana Primary Care Provider: Delfin Blake Discharge Orders/Prescriptions Prescriptions: New oxycodone-acetaminophen [Percocet] 5-325 mg tablet 1 tab PO Q8H PRN (Reason: pain) 7 Days Qty: 20 RF: 0 cephalexin [cephalexin] 500 MG capsule 500 mg PO Q12 3 Days Qty: 6 RF: 0 Continued flaxseed oil 1,000 mg capsule 1,000 mg PO QDAY RF: 0 multivitamin tablet 1 tab PO QAM RF: 0 nutra calm 2 tab PO QHS RF: 0 acetaminophen [Tylenol] 325 mg capsule 325 mg PO Q6H PRN (Reason: Pain) RF: 0 (DME) OneTouch Ultra Blue Test Strip strip See Dose Instructions .ROUTE .MEDSUPPLY Qty: 50 RF: 11 magnesium oxide 400 mg (241.3 mg magnesium) tablet 400 mg PO DAILY RF: 0 calcium carbonate [Calci-Chew] 500 mg calcium (1,250 mg) tablet,chewable 500 mg PO DAILY RF: 0 ascorbate calcium (vitamin C) 500 mg tablet 500 mg PO DAILY RF: 0 cholecalciferol (vitamin D3) 1,000 unit capsule 1,000 unit capsule 1,000 unit PO DAILY RF: 0 glipizide 5 mg tablet extended release 24hr 5 mg PO DAILY Qty: 90 RF: 1 aspirin 81 mg tablet,delayed release (DR/EC) 81 mg PO QDAY Qty: 90 RF: 3 valsartan-hydrochlorothiazide 320-25 mg tablet 0.5 tab PO QDAY Qty: 90 RF: 2 Hold Instructions: Home Medication placed on hold at Doctor's office amitriptyline 25 mg tablet 25 mg PO QHS Qty: 90 RF: 3 timolol maleate [Timoptic] 0.5 % drops 1 drp ophthalmic (eye) BID RF: 0 estradiol 0.01 % (0.1 mg/gram) cream 1 g vaginal QWEEK RF: 0 Myrbetriq 50 mg tablet extended release 24 hr 50 mg PO DAILY RF: 0 metformin 500 mg tablet extended release 24 hr 500 mg PO 0800 Qty: 90 RF: 2 naproxen sodium [Aleve] 220 mg Capsule 220 mg PO BID PRN (Reason: Pain) RF: 0 PreserVision AREDS-2 250-90-40-1 mg Capsule 1 tab PO BID RF: 0 metoprolol succinate 50 mg tablet extended release 24 hr 50 mg PO QHS RF: 0 pravastatin 10 mg tablet 10 mg PO DAILY RF: 0 esomeprazole magnesium [Nexium] 20 mg capsule,delayed release(DR/EC) 25 mg PO QDAY RF: 0 metformin 1,000 mg tablet 1,000 mg PO QHS RF: 0 Trulicity 1.5 mg/0.5 mL pen injector 1.5 mg subcut SA RF: 0 Other Ambulatory Orders: 12 Lead EKG (Routine) Timeframe: [id number] Facility: [facility] - Location: Cardiovascular Services Ordered By: Dr. Brianda Galeana Referrals / Follow Up: Delfin Blake DO [Primary Care Provider] - Disposition Disposition (needs filled in before D/C Order can be placed): Home, Self Care
[2021-02-26 08:36] LABS: Bedside Glucose 132 mg/dL (70-110)
--- NOTE | 2021-02-26 11:35 | PCM.OPRPT ---
Problems Associated Problem List Diagnoses (1) Dyspareunia in female: (2) Stress incontinence (female) (male): Report of Operation Date of Procedure: 02/26/21 Pre-Operative Diagnosis: Stress urinary incontinence, dyspareunia Post-Operative Diagnosis: Same Surgery/Procedure Performed:: Mid urethral sling insertion, cystoscopy, perineoplasty Surgeon: Brianda Galeana Type of Anesthesia: General Description of Procedure: The patient is a 75-year-old female with stress urinary incontinence and dyspareunia secondary to a tight vaginal mucosa at the perineal body. Informed consent was obtained. She was taken to the operating room and placed on the operating room table. Anesthesia monitored the head, neck, airway, IV access and vital signs throughout the case. Once anesthesia was appropriate ministered the patient was placed into dorsal lithotomy in Trendelenburg position. She was prepped and draped in usual sterile fashion. A 16 Greenlandic Fine catheter was inserted and the bladder was drained. Mid urethra was isolated and injected submucosally with 1% lidocaine with epinephrine. A vertical midline incision was made approximately 1.5 cm in length. Sharp and blunt dissection was performed on either side of the urethra with care being taken to avoid entrance into the urethra. The trochars were then passed into the transobturator complexes bilaterally and the sling was positioned flatly against the urethra. Was tensioned using the tensioning suture which was then cut. The mid urethral incision was then closed using running interlocking 2-0 Vicryl. The perineum mucosa was injected with lidocaine and a midline vertical incision was made. This was closed using a Heineke-Mikulicz's maneuver with 2-0 Vicryl. The Fine catheter was removed and the cystoscope was inserted through the urethra under direct visualization into the urinary bladder. There were no areas of injury identified or foreign body. At this time the cystoscope was removed. The patient was then awakened and taken to the recovery room in good condition. There were no complications during this procedure. Grafts/Implants Used: Altis midurethral sling Complications none Admit VTE Documentation VTE Present on Admission: Yes VTE Mechan Device Prophylaxis: SCD's VTE Pharm Prophylaxis ordered?: No Reason prophylaxis not ordered:: Treatment Not Indicated
--- NOTE | 2021-02-26 13:12 | EKG12_ITS ---
Test Reason : PREOP Blood Pressure : / mmHG Vent. Rate : 076 BPM Atrial Rate : 076 BPM P-R Int : 154 ms QRS Dur : 074 ms QT Int : 364 ms P-R-T Axes : 045 -05 064 degrees QTc Int : 409 ms Sinus rhythm with occasional Premature ventricular complexes Otherwise normal ECG Confirmed by EMILY PEPE, JARON ([id number]), clinical editor MILI NIÑO ([id number]) on 02/26/2021 1:14:13 PM Referred By: Brianda Galeana Confirmed By:JARON DIAZ MD
== END 2021-02-26 12:45 | disposition home or self-care (01) ==
LOC: SDC 05:42 → AC 05:42
PROVIDERS: Anesthesiology; PCP Family Medicine; Referring Provider Urology; Visit Provider Urology
PROC: 0TJB8ZZ Inspection of Bladder, Via Natural or Artificial Opening Endoscopic (ICD-10-PCS; CPT 57288; principal; 2021-02-26 07:20)
DX: N94.10 Unspecified dyspareunia (principal); N39.3 Stress incontinence (female) (male); N81.10 Cystocele, unspecified; I10 Essential (primary) hypertension; I34.1 Nonrheumatic mitral (valve) prolapse; E11.9 Type 2 diabetes mellitus without complications; E78.00 Pure hypercholesterolemia, unspecified; J44.9 Chronic obstructive pulmonary disease, unspecified; K21.9 Gastro-esophageal reflux disease without esophagitis; M19.90 Unspecified osteoarthritis, unspecified site; Z79.82 Long term (current) use of aspirin; Z79.84 Long term (current) use of oral hypoglycemic drugs; Z79.899 Other long term (current) drug therapy; Z87.440 Personal history of urinary (tract) infections
CPT/HCPCS: 00860; 56810; 57288; 36415; 80048; 82962; 83036; 85027; 93005; J7120; J2405

== ENCOUNTER → 2021-10-31 | Outpatient (CLI) | payer MEDICARE, SELFPAY ==
[2021-10-31 12:47] LABS: AST(SGOT) 32 U/L (15-37); Alanine Aminotransfer ALT/SGPT 36 U/L (13-56); Albumin, Serum 3.5 g/dL (3.2-5.0); Alkaline Phosphatase 67 U/L (45-117); Anion Gap 7 (5-15); BUN 21 mg/dL (7-18); BUN/Creat Ratio 19.4 RATIO (10-20); Calcium,Total 9.5 mg/dL (8.5-10.1); Chloride 100 mmol/L (98-107); Cholesterol 154 mg/dL (200); Creatinine, Serum 1.08 mg/dL (0.55-1.02); EST Glomerular Filtration Rate 53 mL/min (>60); Est Glom Filt Rate - Afr Amer 64 mL/min (>60); Globulin 3.6 g/dL (2.2-4.2); Glucose 167 mg/dL (74-106); High Density Lipoprotein 48 mg/dL; Potassium 4.4 mmol/L (3.5-5.1); Protein, Total 7.1 g/dL (6.4-8.2); Sodium Level 135 mmol/L (136-145); Triglycerides 233 mg/dL; Very Low Density Lipoprotein 47 mg/dL (5-40)
[2021-10-31 13:28] LABS: Microalbumin:Creatinine Ratio 658.8 mg/g CRE (<30 mg/g CRE)
== END | disposition home or self-care (01) ==
LOC: BIMLAB 10:08
PROVIDERS: PCP Family Medicine; Referring Provider Family Medicine; Visit Provider Family Medicine
DX: I10 Essential (primary) hypertension (principal); E11.9 Type 2 diabetes mellitus without complications
CPT/HCPCS: 36415; 80053; 80061; 82043; 82570

== ENCOUNTER → 2022-11-20 | Outpatient (CLI) | payer MEDICARE, SELFPAY ==
[2022-11-20 13:33] LABS: ALB/GLOB Ratio 0.9 RATIO (0.9-2.4); AST(SGOT) 24 U/L (15-37); Alanine Aminotransfer ALT/SGPT 28 U/L (13-56); Albumin, Serum 3.1 g/dL (3.2-5.0); Alkaline Phosphatase 75 U/L (45-117); Anion Gap 10 (5-15); BUN 26 mg/dL (7-18); Chloride 102 mmol/L (98-107); Cholesterol 151 mg/dL (200); Creatinine, Serum 1.04 mg/dL (0.55-1.02); EST Glomerular Filtration Rate 55 mL/min (>60); Est Glom Filt Rate - Afr Amer 66 mL/min (>60); Globulin 3.5 g/dL (2.2-4.2); Glucose 262 mg/dL (74-106); High Density Lipoprotein 43 mg/dL; Potassium 4.3 mmol/L (3.5-5.1); Protein, Total 6.6 g/dL (6.4-8.2); Sodium Level 134 mmol/L (136-145); Triglycerides 356 mg/dL; Very Low Density Lipoprotein 71 mg/dL (5-40)
== END | disposition home or self-care (01) ==
LOC: BIMLAB 10:24
PROVIDERS: PCP Family Medicine; Referring Provider Family Medicine; Visit Provider Family Medicine
DX: E11.9 Type 2 diabetes mellitus without complications (principal)
CPT/HCPCS: 36415; 80053; 80061

== ENCOUNTER → 2022-12-02 | Outpatient (CLI) | payer MEDICARE, SELFPAY ==
--- NOTE | 2022-12-02 14:30 | NEURO_ITS ---
NCS and/or EMG Patient Report Ordering Doctor: Brendan Ma DATE OF SERVICE: 12/02/22 Findings: Nerve conduction studies were performed in the right upper extremity. The right median motor study recording the abductor pollicis brevis showed a slightly reduced amplitude, markedly prolonged distal latency and slowed conduction velocity. The right ulnar motor study recording the abductor digiti minimi showed a normal amplitude, normal distal latency and normal conduction velocity. No conduction block or focal slowing was present across the elbow. The right median sensory response recording digit two was absent. The right ulnar sensory response recording digit five showed a normal amplitude, latency and conduction velocity. The right radial sensory response recording over the extensor snuff box showed a normal amplitude, latency and conduction velocity. The right median-ulnar lumbrical / interosseous motor latencies showed a markedly prolonged median latency compared to the ulnar. Needle EMG of the right upper extremity muscles was performed. No denervation was seen in any muscle, but insertional activity was slightly increased in the abductor pollicis brevis. In the abductor pollicis brevis, motor units were slightly polyphasic with reduced recruitment. All other motor unit morphology, activation and recruitment patterns were normal. Impression: This is an abnormal study. There is electrophysiologic evidence of median neuropathy across the right wrist. The pathophysiology is demyelinating, though with significant secondary sensory axon loss. These findings are compatible with the clinica diagnosis of carpal tunnel syndrome. In addition, there is no electrophysiologic evidence of a superimposed cervical radiculopathy, brachial plexopathy or other entrapment neuropathy in the right upper extremity. Mazin Velázquez D.O. Multi Select Codes Neurology Neurology Interp Codes: 77495-16 Musc test done w/n test comp (interp) and 64984-72 [facility] cndj test 7-8 studies (interp)
== END | disposition home or self-care (01) ==
PROVIDERS: PCP Family Medicine; Referring Provider Orthopaedic Surgery Sports Medicine; Visit Provider Orthopaedic Surgery Sports Medicine
DX: G56.01 Carpal tunnel syndrome, right upper limb (principal)
CPT/HCPCS: 95886; 95910

== ENCOUNTER 2023-02-26 05:36 | Day surgery (SDC) | payer MEDICARE, SELFPAY ==
[2023-02-26] VITALS (7 sets, daily range): BP systolic 120–157; BP diastolic 53–81; PULSE 70–79; RESP 16–20; TEMP 36.4–36.6; O2SAT 94–98; BMI 31.6
[2023-02-26] MEDS: Lactated Ringers 1,000 ML 15 ML IV (06:37)
[2023-02-26 06:54] LABS: Bedside Glucose 173 mg/dL (74-106)
--- NOTE | 2023-02-26 07:13 | PCM.HP.STD ---
HPI - General HPI Narrative JEFFERY MURPHY, is a 77 F who presents for right endoscopic carpal tunnel release. No changes to history and physical exam. We talked about the surgery and recovery associated with that. Follow-up in the office in 2 days time. Right wrist marked. Patient here with her significant other. Discussed postop pain medications typically I do not use narcotics after this local anesthetic and oral huja-lcp-rozadya medications. The patient understands wishes to proceed no further concerns. MR#: [id number] Acct: [id number] Name: JEFFERY MURPHY Rep #: [id number] : 1945 Provider: Dr. Brendan Ma MD Age/Sex: 77/F Location: [facility] [place] Status: Signed Intake Vital Signs 09/17/2308:22 Height 5 ft 1 in Weight: 169 lb BMI 31.9 Intake Visit Reasons: right wrist Chief Complaint: 3 month f/u Allergies canagliflozin [From Invokana] Allergy (Severe, Verified 11/20/22 09:49) Itchingchlorpheniramine [From Ornade] Allergy (Severe, Verified 11/20/22 09:49) NEEDS FOLLOW-UPphenylpropanolamine [From Ornade] Allergy (Severe, Verified 11/20/22 09:49) NEEDS JISYLM-RJssusd-flhyb bee Allergy (Unknown, Verified 11/20/22 09:49) Unknown Medications acetaminophen 325 mg capsule (Tylenol) 325 mg PO Q6H PRN Pain 09/03/17 [History Confirmed 12/05/22] flaxseed oil 1,000 mg capsule 1,000 mg PO QDAY 09/03/17 [History Confirmed 12/05/22] multivitamin 1 tab PO QAM 09/03/17 [History Confirmed 12/05/22] nutra calm 2 tab PO QHS 09/03/17 [History Confirmed 12/05/22] blood sugar diagnostic ([place]/BudistTouch Ultra Blue Test Strip) #50 ea 05/04/18 [Rx Confirmed 12/05/22] aspirin 81 mg tablet,delayed release 81 mg PO QDAY #90 tabs 08/30/20 [Rx Confirmed 12/05/22] naproxen sodium 220 mg capsule (Aleve) 220 mg PO BID PRN Pain 11/28/20 [History Confirmed 12/05/22] vit C 250 mg-vit E 90 mg-zinc 40 mg-copper 1 se-rbsdtl-qgxoud capsule (PreserVision AREDS-2) 1 tab PO BID 11/28/20 [History Confirmed 12/05/22] ascorbate calcium (vitamin C) 500 mg tablet 1 g PO DAILY 04/18/21 [History Confirmed 12/05/22] calcium carb-magnesium carb 250 mg-300 mg tablet 1 tab PO ONCE 04/18/21 [History Confirmed 12/05/22] cholecalciferol (vitamin D3) 25 mcg (1,000 unit) capsule 5,000 unit PO DAILY 04/18/21 [History Confirmed 12/05/22] mirabegron 50 mg tablet,extended release 24 hr (Myrbetriq) 50 mg PO DAILY #90 tabs 02/14/22 [Rx Confirmed 12/05/22] valsartan 80 mg-hydrochlorothiazide 12.5 mg tablet 1 tab PO DAILY #90 tabs 05/22/22 [Rx Confirmed 12/05/22] pravastatin 10 mg tablet 10 mg PO DAILY #90 tabs 09/06/22 [Rx Confirmed 12/05/22] timolol maleate 0.5 % eye drops (Timoptic) 1 drp ophthalmic (eye) BID #15 mL 09/06/22 [Rx Confirmed 12/05/22] dulaglutide 1.5 mg/0.5 mL subcutaneous pen injector (Trulicity) 1.5 mg (0.5 mL) subcut SA #6 mL 09/24/22 [Rx Confirmed 12/05/22] glipizide 5 mg tablet, extended release 24 hr 5 mg PO DAILY #90 tabs 10/15/22 [Rx Confirmed 12/05/22] amitriptyline 25 mg tablet 25 mg PO QHS #90 tabs 11/20/22 [Rx Confirmed 12/05/22] esomeprazole magnesium 20 mg capsule,delayed release (Nexium) 20 mg PO QDAY #90 caps 11/20/22 [Rx Confirmed 12/05/22] metformin 1,000 mg tablet 1,000 mg PO QHS #90 tabs 11/20/22 [Rx Confirmed 12/05/22] metoprolol succinate 25 mg tablet,extended release 24 hr 25 mg PO QHS #90 tabs 11/20/22 [Rx Confirmed 12/05/22] [facility] Medical History Arthritis Back pain Bone fracture Cardiology follow-up encounter Cataracts, bilateral Chronic back pain Chronic headaches COPD (chronic obstructive pulmonary disease) Diabetes Dyspareunia in female Gastric reflux GERD (gastroesophageal reflux disease) Gout Hearing problem Heart murmur High cholesterol History of echocardiogram History of edema History of irregular heartbeat History of stress test Hyperlipemia Hypertension Injury of head and neck Leg cramps Lesion of urinary bladder Mitral valve prolapse Non-smoker Recurrent UTI Seasonal allergic rhinitis Type 2 diabetes mellitus Vision problem Wears glasses Surgical History History of cholecystectomy History of cystoscopy History of foot surgery History of hysterectomy History of tonsillectomy Hx of cystoscopy Family History Mother Cancer ovarian Arthritis Diabetes DepressionFather Respiratory disease Arthritis Heart diseaseGrandfather Heart disease Myocardial infarctionBrother ParkinsonsSister DiabetesAunt Thyroid disorder Arthritis Diabetes Social History Smoking Status: Never smoker alcohol intake: never substance use type: does not use what type of physical activity do you participate in: walking frequency: daily HPI right wrist Details: Parts of this documentation were recorded by a scribe, this documentation accurately reflects the service provided and the decisions made by me, Dr. Brendan Ma MD 12/05/22 0901. JEFFERY MURPHY is a 77 year old F here today for FU NCS for R CTS. patient is trying nighttime splints but not very effective it is a little bit helping but still the hands going to sleep mostly getting numbness into the middle finger and not in the fifth digit. This has been going to sleep for 15 years and getting worse over the last year. Ortho Exam General General: Yes no acute distress Neurologic: Yes alert and Yes oriented x3 Psychologic: Yes reasonable and appropriate Right Wrist/Hand Skin/Wound: Yes CDI, No Swelling, No Ecchymosis and Yes capillary refill normal A1 frances trigger: No Right Wrist: Yes ROM-Extension 0-60, ROM-Flexion 0-80, ROM-Pronation 0-80, ROM-Supination 0-90 and Thenar Atrophy; No Hypothenar Atrophy Motor: EPL: 5, FDP-2: 5, 1st Dorsal Interosseous: 5 and APB: 4 Sensation: Radial: I, Ulnar: I and Median: D Left Wrist/Hand Skin/Wound: No Swelling and No Ecchymosis Supplemental Info [facility] Pulmonary Services/Neurology [address] [place] [address] MR#: [id number] Acct: [id number] Name: JEFFERY MURPHY Rep #: [id number] : 1945 77 From: Mazin Velázquez DO Referring Dr: Brendan Ma MD Status: REG CLI Location: PSN Date: 12/02/22 Sex: F C NCS and/or EMG Patient Report Ordering Doctor: Brendan Ma DATE OF SERVICE: 12/02/22 Findings: Nerve conduction studies were performed in the right upper extremity. The right median motor study recording the abductor pollicis brevis showed a slightly reduced amplitude, markedly prolonged distal latency and slowed conduction velocity. The right ulnar motor study recording the abductor digiti minimi showed a normal amplitude, normal distal latency and normal conduction velocity. No conduction block or focal slowing was present across the elbow. The right median sensory response recording digit two was absent. The right ulnar sensory response recording digit five showed a normal amplitude, latency and conduction velocity. The right radial sensory response recording over the extensor snuff box showed a normal amplitude, latency and conduction velocity. The right median-ulnar lumbrical / interosseous motor latencies showed a markedly prolonged median latency compared to the ulnar. Needle EMG of the right upper extremity muscles was performed. No denervation was seen in any muscle, but insertional activity was slightly increased in the abductor pollicis brevis. In the abductor pollicis brevis, motor units were slightly polyphasic with reduced recruitment. All other motor unit morphology, activation and recruitment patterns were normal. Impression: This is an abnormal study. There is electrophysiologic evidence of median neuropathy across the right wrist. The pathophysiology is demyelinating, though with significant secondary sensory axon loss. These findings are compatible with the clinica diagnosis of carpal tunnel syndrome. In addition, there is no electrophysiologic evidence of a superimposed cervical radiculopathy, brachial plexopathy or other entrapment neuropathy in the right upper extremity. Mazin Velázquez D.O. Coding Level of Care Code Off vis,est,level 3 Diagnoses Carpal tunnel syndrome of right wrist G56.01 Assessment and Plan Assessment and Plan (1) Carpal tunnel syndrome of right wrist: Status: Acute Plan: 77-year-old female signs and symptoms as well as nerve conduction study evidence of longstanding right-sided carpal tunnel syndrome. Can continue to try nonoperative management although this has been getting worse and more severe as well as there is signs of long-term compression of the nerve. Can try rest ice anti-inflammatories nighttime splinting injections or surgery both endoscopic or open. The patient likes to proceed with a definitive surgical solution this may take longer to recover given the chronicity of the problem and I warned the patient of that. Typical recovery is up to 6 weeks for this before going back to heavy lifting and gripping and gardening which the patient enjoys. She would like to go ahead with right endoscopic carpal tunnel release. Pros and cons risks and benefits were discussed with the patient including but not limited to infection, pain, stiffness, bleeding, damage to surrounding structures, neurovascular injury, recurrence or retear, failure or wear of hardware or fixation, instability, fracture, deep vein thrombosis and pulmonary embolism, anesthetic risks, , patient dissatisfaction, need for further surgery and other risks. Patient understood and wished to proceed with surgery, and signed the informed consent documentation. [facility] Medical History (Updated 02/20/23 @ 09:41 by Sophie Short) Arthritis Back pain Cardiology follow-up encounter Cataracts, bilateral Chronic back pain COPD (chronic obstructive pulmonary disease) Diabetes Dyspareunia in female Gastric reflux GERD (gastroesophageal reflux disease) Gout Heart murmur High cholesterol History of diverticulitis History of echocardiogram History of edema History of hiatal hernia History of irregular heartbeat History of stress test [place] (hard of hearing) Hyperlipemia Hypertension Injury of head and neck Leg cramps Lesion of urinary bladder Mitral valve prolapse Non-smoker OAB (overactive bladder) Recurrent UTI Seasonal allergic rhinitis Type 2 diabetes mellitus Vision problem Wears glasses Home Medications acetaminophen 325 mg capsule (Tylenol) 325 mg PO Q6H PRN Pain 09/03/17 [History Last Taken Unknown] flaxseed oil 1,000 mg capsule 1,000 mg PO QDAY 09/03/17 [History Last Taken Unknown] multivitamin 1 tab PO QAM 09/03/17 [History Last Taken Unknown] nutra calm 2 tab PO QHS 09/03/17 [History Last Taken Unknown] blood sugar diagnostic (OneTouch Ultra Blue Test Strip) #50 ea 05/04/18 [Rx Last Taken Unknown] aspirin 81 mg tablet,delayed release 81 mg PO QDAY #90 tabs 08/30/20 [Rx Last Taken 02/20/23] naproxen sodium 220 mg capsule (Aleve) 220 mg PO BID PRN Pain 11/28/20 [History Last Taken Unknown] vit C 250 mg-vit E 90 mg-zinc 40 mg-copper 1 hh-mqcgqi-jjkcjx capsule (PreserVision AREDS-2) 1 tab PO BID 11/28/20 [History Last Taken Unknown] ascorbate calcium (vitamin C) 500 mg tablet 1 g PO DAILY 04/18/21 [History Last Taken Unknown] calcium carb-magnesium carb 250 mg-300 mg tablet 1 tab PO DAILY 04/18/21 [History Last Taken Unknown] cholecalciferol (vitamin D3) 25 mcg (1,000 unit) capsule 5,000 unit PO DAILY 04/18/21 [History Last Taken Unknown] mirabegron 50 mg tablet,extended release 24 hr (Myrbetriq) 50 mg PO DAILY #90 tabs 02/14/22 [Rx Last Taken 02/26/23] valsartan 80 mg-hydrochlorothiazide 12.5 mg tablet 1 tab PO DAILY #90 tabs 05/22/22 [Rx Last Taken Unknown] timolol maleate 0.5 % eye drops (Timoptic) 1 drp ophthalmic (eye) BID #15 mL 09/06/22 [Rx Last Taken Unknown] dulaglutide 1.5 mg/0.5 mL subcutaneous pen injector (Trulicity) 1.5 mg (0.5 mL) subcut SA #6 mL 09/24/22 [Rx Last Taken Unknown] glipizide 5 mg tablet, extended release 24 hr 5 mg PO DAILY #90 tabs 10/15/22 [Rx Last Taken Unknown] amitriptyline 25 mg tablet 25 mg PO QHS #90 tabs 11/20/22 [Rx Last Taken Unknown] esomeprazole magnesium 20 mg capsule,delayed release (Nexium) 20 mg PO QDAY #90 caps 11/20/22 [Rx Last Taken 02/26/23] metformin 1,000 mg tablet 1,000 mg PO QHS #90 tabs 11/20/22 [Rx Last Taken Unknown] metoprolol succinate 25 mg tablet,extended release 24 hr 25 mg PO QHS #90 tabs 11/20/22 [Rx Last Taken Unknown] pravastatin 10 mg tablet See Rx Instructions .Route .COMPLEX #90 tabs 02/17/23 [Rx Last Taken Unknown] erythromycin 5 mg/gram (0.5 %) eye ointment 1 applic ophthalmic (eye) DAILY 02/20/23 [History Last Taken Unknown] Allergy/AdvReac Type Severity Reaction Status Date / Time canagliflozin [From Invokana] Allergy Severe Itching Verified 02/26/23 06:26 chlorpheniramine Allergy Severe NEEDS Verified 02/26/23 06:26 [From Ornade] FOLLOW-UP phenylpropanolamine Allergy Severe NEEDS Verified 02/26/23 06:26 [From Ornade] FOLLOW-UP venom-honey bee Allergy Unknown Unknown Verified 02/26/23 06:26 Family History Mother Cancer ovarian Arthritis Diabetes Depression Father Respiratory disease Arthritis Heart disease Grandfather Heart disease Myocardial infarction Brother Parkinsons Sister Diabetes Aunt Thyroid disorder Arthritis Diabetes Surgical History (Updated 02/20/23 @ 09:41 by Sophie Short) History of cholecystectomy History of cystoscopy History of foot surgery History of hysterectomy History of tonsillectomy Hx of cystoscopy Social History Smoking Status: Never smoker alcohol intake: never substance use type: does not use what type of physical activity do you participate in: walking frequency: daily Vital Signs Vital Signs Vital Signs: 02/26/23 06:29 02/26/23 06:29 Temperature 97.7 F L Temperature Source Temporal Pulse Rate 76 Respiratory Rate 20 H Respiratory Pattern Normal Blood Pressure 157/81 H Blood Pressure Mean 106 Blood Pressure Source Monitor Blood Pressure Position Semi-Fowlers Blood Pressure Location Left Arm Pulse Ox 98 Oxygen Delivery Method Room Air Weight Weight: 167 lb 8.821 oz Body Mass Index (BMI) 31.6 Results Lab / Micro Data Labs: Laboratory Results - last 24 hr 02/26/23 06:21: POC Glucose 173 H
[2023-02-26] MEDS: Cefazolin 2 GM in 0.9% Normal Saline (100mL Bag) 100 ML IV (07:39)
[2023-02-26] MEDS: Bupivacaine 0.25% 30 ML Vial (07:56)
--- NOTE | 2023-02-26 08:23 | OP.PCM_ITS ---
Problems Associated Problem List Diagnoses (1) Carpal tunnel syndrome of right wrist: Report of Operation Date of Procedure: 02/26/23 Pre-Operative Diagnosis: R carpal tunnel syndrome Post-Operative Diagnosis: same Surgery/Procedure Performed:: right endoscopic carpal tunnel release Surgeon: Brendan Ma Type of Anesthesia: Local MAC and Local Anesthesiologist: César Jenkins Estimated Blood Loss (mL): 10 Description of Procedure: Patient was brought to the operating room theater.? The patient was administered 2g iv ancef prior to the start of the procedure.? Placed supine on the operating room table.? Anesthesia induced.? SCDs on the legs.? Tourniquet applied to the right upper operative extremity, appropriately padded. Arm table used. Operative extremity prepped and draped in the usual sterile fashion with chlorhexidine- based prep solution allowing over 3 minutes drying time prior to draping.? Preoperative timeout performed to confirm the site patient and the surgery. Limb limb elevated tourniquet inflated to 250 mmHg.? I used the Arthex center line endoscopic carpal tunnel kit / technique. Tourniquet to 250mmhg. 7cc 0.25% bupivicaine at incision site. ? I made a transverse 2 cm incision in line with the? transverse wrist crease.? This was in line with the fourth digit.? I carried the dissection down through skin and subcutaneous tissue achieved meticulous hemostasis. Just ulnar to palmaris tendon.? I incised the antebrachial fascia.? I passed sequential dilators into the carpal tunnel along the radial border of the Guyon's canal aiming for the fourth digit with the hand in extension. I used a synovial elevator to identify the transverse fibers of the transverse carpal tunnel ligament.? Passed the scope into the carpal tunnel. Once I had identified the full proximal and distal extent of the ligament I fully released the ligament under direct visualization by deploying the blade and slowly withdrawing the scope made sequential passes until I no longer felt tension as well as the entire extent of the ligament was released under direct visualization.? Sounded the tunnel with waters tenotomy scissors, complete release, no bands. Arthroscope light was more visible through the skin. Pictures taken and saved. Wound thoroughly irrigated.? Tourniquet let down prior to end of the case and meticulous hemostasis achieved.? Thorough irrigation.? ? Incisions closed with 3-0 nylon for the skin.?Skin was cleaned and dried. adaptic 4x4 gauze and mitch. Patient woken up,? transferred off the operating room table and taken to postanesthetic care unit in stable condition. All sponge needle instrument counts were correct no complications.? Plan for the patient to be discharged home according to day surgery criteria when they are comfortable. Follow-up in the office in 2 days time. Gentle ROM hand and elbow no heavy lifting. cpt [id number] Complications none Admit VTE Documentation VTE Present on Admission: No VTE Mechan Device Prophylaxis: SCD's VTE Pharm Prophylaxis ordered?: No Reason prophylaxis not ordered:: Treatment Not Indicated Procedures Musculoskeletal 20xxx-29xxx: Other Procedure See Report
--- NOTE | 2023-02-26 08:25 | DCINST_ITS ---
Discharge Instructions Diet Discharge Diet: No restrictions Activity Discharge Activity: Return to Normal Activity Ice area for (Minutes): 10 Keep extremity elevated above heart level: Operative Extremity Additional Activity Instructions:: ok for finger and wrist rom, no heavy lifting or gripping Dressing / Incision Call your doctor if your incision/area has: Continuous Slow Oozing, Sudden Increased Bleeding, Increased Pain/ Swelling, Increased Redness, Foul Smelling Discharge and Swelling at the incision site Change Dressing in: leave in place till F/U Follow Up Care Please Follow Up With: Brendan Ma MD When: 2 days Test Results: Test results from this visit will be discussed in further detail at your follow- up appointment, if applicable. Discharge Plan Admission Attending Provider: Brendan Ma Primary Care Provider: Delfin Blake Discharge Orders/Prescriptions Prescriptions: No Action flaxseed oil 1,000 mg capsule 1,000 mg PO QDAY multivitamin tablet 1 tab PO QAM nutra calm 2 tab PO QHS acetaminophen [Tylenol] 325 mg capsule 325 mg PO Q6H PRN (Reason: Pain) (DME) OneTouch Ultra Blue Test Strip strip See Dose Instructions .ROUTE .MEDSUPPLY Qty: 50 11RF Dose Instruction: As directed Rx Instructions: As directed. Check BG one to two times daily ascorbate calcium (vitamin C) 500 mg tablet 1 g PO DAILY cholecalciferol (vitamin D3) 1,000 unit capsule 25 mcg (1,000 unit) capsule 5,000 unit PO DAILY aspirin 81 mg tablet,delayed release (DR/EC) 81 mg PO QDAY Qty: 90 3RF calcium carb-magnesium carb 250-300 mg tablet 1 tab PO DAILY Myrbetriq 50 mg tablet extended release 24 hr 50 mg PO DAILY Qty: 90 1RF valsartan-hydrochlorothiazide 80-12.5 mg tablet 1 tab PO DAILY Qty: 90 2RF metformin 1,000 mg tablet 1,000 mg PO QHS Qty: 90 1RF metoprolol succinate 25 mg tablet extended release 24 hr 25 mg PO QHS Qty: 90 2RF esomeprazole magnesium [Nexium] 20 mg capsule,delayed release(DR/EC) 20 mg PO QDAY Qty: 90 1RF amitriptyline 25 mg tablet 25 mg PO QHS Qty: 90 3RF naproxen sodium [Aleve] 220 mg Capsule 220 mg PO BID PRN (Reason: Pain) PreserVision AREDS-2 250-90-40-1 mg Capsule 1 tab PO BID erythromycin 5 mg/gram (0.5 %) ointment 1 applic ophthalmic (eye) DAILY Patient Comments: APPLY A SMALL AMOUNT INTO LEFT EYELID ONCE A DAY timolol maleate [Timoptic] 0.5 % drops 1 drp ophthalmic (eye) BID Qty: 15 2RF Trulicity 1.5 mg/0.5 mL pen injector 1.5 mg subcut SA Qty: 6 1RF glipizide 5 mg tablet extended release 24hr 5 mg PO DAILY Qty: 90 1RF pravastatin 10 mg tablet See Rx Instructions .ROUTE .COMPLEX Qty: 90 1RF Dose Instruction: TAKE 1 TABLET BY MOUTH DAILY Rx Instructions: TAKE 1 TABLET BY MOUTH DAILY Referrals / Follow Up: Delfin Blake DO [Primary Care Provider] - Brendan Ma MD [Med Staff - Active Staff] - Disposition Disposition (needs filled in before D/C Order can be placed): Home, Self Care
== END 2023-02-26 09:37 | disposition home or self-care (01) ==
LOC: SDC 05:37 → AC 05:39
PROVIDERS: PCP Family Medicine; Referring Provider Orthopaedic Surgery Sports Medicine; Visit Provider Orthopaedic Surgery Sports Medicine
PROC: (CPT 29848; principal; 2023-02-26 07:15)
DX: G56.01 Carpal tunnel syndrome, right upper limb (principal); J44.9 Chronic obstructive pulmonary disease, unspecified; E11.9 Type 2 diabetes mellitus without complications; I10 Essential (primary) hypertension; E78.00 Pure hypercholesterolemia, unspecified; M54.9 Dorsalgia, unspecified; G89.29 Other chronic pain; Z79.84 Long term (current) use of oral hypoglycemic drugs; Z79.1 Long term (current) use of non-steroidal anti-inflammatories (NSAID); Z79.82 Long term (current) use of aspirin; Z79.899 Other long term (current) drug therapy
CPT/HCPCS: 29848; 01810; 82962; J7120

== ENCOUNTER → 2023-11-25 | Outpatient (CLI) | payer MEDICARE, SELFPAY ==
[2023-11-25 12:30] LABS: ALB/GLOB Ratio 0.9 RATIO (0.9-2.4); AST(SGOT) 30 U/L (15-37); Alanine Aminotransfer ALT/SGPT 26 U/L (13-56); Albumin, Serum 3.4 g/dL (3.2-5.0); Alkaline Phosphatase 71 U/L (45-117); Anion Gap 6 (5-15); BUN 22 mg/dL (7-18); BUN/Creat Ratio 17.9 RATIO (10-20); Calcium,Total 9.6 mg/dL (8.5-10.1); Chloride 101 mmol/L (98-107); Creatinine, Serum 1.23 mg/dL (0.55-1.02); EST Glomerular Filtration Rate 45 mL/min (>60); Est Glom Filt Rate - Afr Amer 55 mL/min (>60); Globulin 3.8 g/dL (2.2-4.2); Glucose 136 mg/dL (74-106); Potassium 4.4 mmol/L (3.5-5.1); Protein, Total 7.2 g/dL (6.4-8.2); Sodium Level 134 mmol/L (136-145)
[2023-11-25 12:45] LABS: Absolute Lymphocyte Count 1.66 X10^3/uL (0.83-4.51); Absolute Neutrophil Count 3.3 X10^3/uL (2.0-7.7); Basophil# 0.04 X10^3/uL; Basophil% 0.7 % (0-1); Eosinophil# 0.21 X10^3/uL; Eosinophils% 3.7 % (0-5); Hematocrit 37.2 % (37-47); Hemoglobin 12.4 g/dL (12.0-15.0); Lymphocyte # 1.66 X10^3/ul (0.83-4.51); Lymphocyte % 29.5 % (19-41); Mean Corp Hgb Conc 33.3 g/dL (32-36); Mean Corpuscular Hgb 28.8 pg (27.0-32.0); Mean Corpuscular Volume 86.5 fL (81-99); Mean Platelet Vol. 12.1 fl (6.2-12.0); Monocyte# 0.43 X10^3/uL; Monocyte% 7.7 % (0-10); NRBC Flagged by Analyzer 0 % (0-5); Neutrophil # 3.25 X10^3/uL (2.7-7.7); Neutrophil % 57.9 % (47-70); Platelet Count 242 K/mm3 (150-450); RBC Distribution Width CV 13.2 % (11.6-14.6); RBC Distribution Width SD 41.6 fl (35.1-43.9); White Blood Count 5.6 K/mm3 (4.4-11.0)
== END | disposition home or self-care (01) ==
LOC: BIMLAB 10:26
PROVIDERS: PCP Family Medicine; Referring Provider Family Medicine; Visit Provider Family Medicine
DX: R53.83 Other fatigue (principal); E11.9 Type 2 diabetes mellitus without complications
CPT/HCPCS: 36415; 80053; 85025

== ENCOUNTER → 2024-03-02 | Outpatient (CLI) | payer MEDICARE, SELFPAY ==
[2024-03-02 13:19] LABS: Anion Gap 5 (5-15); BUN 19 mg/dL (7-18); BUN/Creat Ratio 19.9 RATIO (10-20); Calcium,Total 9.4 mg/dL (8.5-10.1); Chloride 99 mmol/L (98-107); Creatinine, Serum 0.95 mg/dL (0.55-1.02); EST Glomerular Filtration Rate 60 mL/min (>60); Est Glom Filt Rate - Afr Amer 73 mL/min (>60); Glucose 120 mg/dL (74-106); Potassium 4.4 mmol/L (3.5-5.1); Sodium Level 133 mmol/L (136-145)
== END | disposition home or self-care (01) ==
LOC: BIMLAB 11:06
PROVIDERS: PCP Family Medicine; Visit Provider Family Medicine
DX: N18.9 Chronic kidney disease, unspecified (principal)
CPT/HCPCS: 36415; 80048

== ENCOUNTER → 2024-08-31 | Outpatient (CLI) | payer MEDICARE, SELFPAY ==
--- NOTE | 2024-08-31 10:20 | RAD_ITS ---
PROCEDURE: SHOULDER MIN 2 VIEWS 08/31/2024 REASON FOR EXAM: SHOULDER PAIN TECHNIQUE: Four views of the right shoulder. COMPARISON: None. FINDINGS: Mild osteopenia. 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 No fracture or dislocation is seen. No lytic or blastic aggressive bone lesion is identified. RAD/Shoulder min 2 Views IMPRESSION: No radiographic evidence of an acute abnormality. Reading [facility]
== END | disposition home or self-care (01) ==
LOC: RAD 10:09
PROVIDERS: PCP Family Medicine; Referring Provider Family Medicine; Visit Provider Family Medicine
DX: M25.511 Pain in right shoulder (principal)
CPT/HCPCS: 73030

== ENCOUNTER → 2025-01-05 | Outpatient (CLI) | payer MEDICARE, SELFPAY ==
[2025-01-05 10:29] LABS: Mucous, Urine 0 SEEN /hpf (<or=2+); Red Blood Cells-Urine 0 SEEN /hpf (0-5); Squamous Epithelial Cells - UA 0 SEEN /hpf (5-10)
[2025-01-05 10:54] LABS: Color, Urine Yellow (Yellow); Glucose, Dipstick Normal (Normal); Ketone-Dipstick Negative (Negative); Leukocyte Esterase-Dipstick Negative /ul (Negative); Nitrite-Dipstick Negative (Negative); Occult Blood-Urine 10 /ul (Negative); Protein-Dipstick 500 mg/dl (Negative); Specific Gravity, Urine 1.015 (1.002-1.030); Urine Bilirubin Dipstick Negative (Negative)
[2025-01-05 11:36] LABS: Cholesterol 163 mg/dL (<=200); Low Density Lipoprotein Calc. 44 mg/dL; Triglycerides 380 mg/dL; Very Low Density Lipoprotein 76 mg/dL (5-40); cholesterol:hdl ratio screen 3.83
[2025-01-05 11:37] LABS: AST(SGOT) 29 U/L (<=31); Alanine Aminotransfer ALT/SGPT 22 U/L (<=34); Albumin, Serum 3.4 g/dL (3.4-4.8); Alkaline Phosphatase 81 U/L (35-104); Anion Gap 11 (5-15); BUN 21 mg/dL (4-19); BUN/Creat Ratio 22.9 RATIO (10-20); Calcium,Total 9.5 mg/dL (7.6-11.0); Carbon Dioxide 24.2 mmol/L (21.0-32.0); Chloride 99 mmol/L (98-108); Globulin 3.1 g/dL (2.2-4.2); Glucose 171 mg/dL (70-99); Potassium 4.7 mmol/L (3.3-5.1)
== END | disposition home or self-care (01) ==
LOC: LAB 10:26
PROVIDERS: PCP Family Medicine; Referring Provider Family Medicine; Visit Provider Family Medicine
DX: R60.0 Localized edema (principal); E11.9 Type 2 diabetes mellitus without complications
CPT/HCPCS: 36415; 80053; 80061; 81001